=== PATIENT | male | born 1945 | race Two or more races ===

== ENCOUNTER → 2017-02-09 | Outpatient (CLI) | payer OTHER, MEDICAID ==
[2016-07-24 15:09] VITALS: BP 136/73
[~2017-02-09] MED LIST: ASPI-482 PO; CONTRAST GIVEN MC PRN; DIGO125T PO; DILT240C2 PO; DILT240C32 PO; DILT240C66 PO; ESCI10TA10 PO; GABA-586 PO; GLIM2TAB2 PO; HYDR-2678 PO; INSU100I13 SQ; INSU100V10 IJ; INSU100V8 SQ; IOHEXOL 300 MG/ML 75 ML VIAL IV ONE; LATA2.5D3 OP; LEVO500T8 PO; LOSA1TAB12 PO; LOSA1TAB17 PO; MECL12.52 PO; METF-620 PO; METF500T4 PO; MONT10TA9 PO; OMEG300C PO; OMEP40CA5 PO; SOTA80TA48 PO; WARF-78 PO; WARF2.5T71 PO; WARF2.5T83 PO; cholestero
[2017-02-09 12:27] LABS: CREATININE 0.9 mg/dL (0.7-1.3); GFR 83.4
--- NOTE | 2017-02-09 13:04 | RAD ---
Indication cough for 6 months. Contrast imaging through the chest was performed. Approximately 75 cc of Omnipaque 300 was administered intravenously. Comparison is made to a study one year ago. Imaging through the upper abdomen shows no acute finding. Known cholelithiasis is reproduced. The thoracic aorta appears unremarkable. There is no significant hilar or mediastinal adenopathy. An acute parenchymal infiltrate in either lung is not seen. A dominant soft tissue mass is not apparent. IMPRESSION: No acute finding in the chest. No significant change compared to the study one year ago PQRS Compliance Statement: One or more of the following individualized dose reduction techniques were utilized for this examination: 1. Automated exposure control 2. Adjustment of the mA and/or kV according to patient size 3. Use of iterative reconstruction technique
== END | disposition home or self-care (01) ==
LOC: CT 11:31
PROVIDERS: ATTEND Family Medicine
DX: R91.1 Solitary pulmonary nodule (principal); Z87.09 Personal history of other diseases of the respiratory system; R05 Cough
CPT/HCPCS: 36415; 71260; 82565; 84520

== ENCOUNTER 2019-02-27 14:08 | Emergency (ER) | payer MEDICAID, OTHER ==
[~2019-02-27] VITALS: Ht 170.2 cm; Wt 86.2 kg
[~2019-02-27 14:08] MED LIST changes: -CONTRAST GIVEN MC PRN; -ESCI10TA10 PO; -GABA-586 PO; +GABA300C18 PO; -INSU100V10 IJ; +INSU100V11 IJ; -IOHEXOL 300 MG/ML 75 ML VIAL IV ONE; +LEXAPRO10 MG PO; -LOSA1TAB17 PO; +LOSA1TAB22 PO; -METF-620 PO; +METF10007 PO; +METF500T16 PO; -METF500T4 PO; +MONT10TA49 PO; -MONT10TA9 PO
[2019-02-27 15:27] VITALS: BP 182/84
[2019-02-27] MEDS ORDERED: CEPH500C PO (15:30)
--- NOTE | 2019-02-27 15:31 | PHYS DOC ---
Past Medical History Past Medical History: Cancer, Diabetes-Type II, High Cholesterol, Hypertension, Other Additional Past Medical Histor: HX COLON CA-CHEMO AND RESECTION- IN REMISSION Past Surgical History: Cancer Surgery, Pacemaker, Other Additional Past Surgical Histo: BACK, COLON RESECTION Alcohol Use: None Drug Use: None Adult General Chief Complaint Chief Complaint: TOE PROBLEM HPI HPI 73-year-old female presents from his primary care provider's office with a lesion to his right second toe. Patient has diabetes and has had foot ulcers in the past. He has not had any fever. He doesn't have any serious pain in the area. He has not seen a repair specialist.[] Review of Systems Review of Systems Constitutional: Denies fever or chills [] Eyes: Denies change in visual acuity, redness, or eye pain [] HENT: Denies nasal congestion or sore throat [] Respiratory: Denies cough or shortness of breath [] Cardiovascular: No additional information not addressed in HPI [] GI: Denies abdominal pain, nausea, vomiting, bloody stools or diarrhea [] : Denies dysuria or hematuria [] Musculoskeletal: Denies back pain or joint pain [] Integument: Lesion to the tip of the right second toe[] Neurologic: Denies headache, focal weakness or sensory changes [] Endocrine: Diabetes that is well controlled[] All other systems were reviewed and found to be within normal limits, except as documented in this note. Allergies Allergies Allergies Coded Allergies Type Severity Reaction Last Updated Verified No Known Drug Allergies 02/27/19 No Physical Exam Physical Exam Constitutional: Well developed, well nourished, no acute distress, non-toxic appearance. [] HENT: Normocephalic, atraumatic, bilateral external ears normal, oropharynx moist, no oral exudates, nose normal. [] Eyes: PERRLA, EOMI, conjunctiva normal, no discharge. [] Neck: Normal range of motion, no tenderness, supple, no stridor. [] Cardiovascular:Heart rate regular rhythm, no murmur [] Lungs & Thorax: Bilateral breath sounds clear to auscultation [] Abdomen: Bowel sounds normal, soft, no tenderness, no masses, no pulsatile masses. [] Skin: Warm, dry, no erythema, no rash. [] Back: No tenderness, no CVA tenderness. [] Extremities: Patient has decreased sensation in both lower extremities he has a 0.5 cm circular lesion to the distal tip of the right second toe with no significant surrounding erythema does not appear to be gangrenous[] Neurologic: Alert and oriented X 3, normal motor function, normal sensory function, no focal deficits noted. [] Psychologic: Affect normal, judgement normal, mood normal. [] Current Patient Data Vital Signs Vital Signs Date Time Temp Pulse Resp B/P (MAP) Pulse Ox O2 Delivery O2 Flow Rate FiO2 02/27/19 14:15 97.9 72 20 194/88 (123) 99 Room Air 97.9 EKG EKG [] Radiology/Procedures Radiology/Procedures [] Course & Med Decision Making Course & Med Decision Making Pertinent Labs and Imaging studies reviewed. (See chart for details) [ED course: Right which reveals a 73-year-old male with a diabetic foot wound. It does not look to be infected. I will go ahead and start him on outpatient antibiotics. I will give him a referral to our wound clinic. I do not think this is anything emergent or urgent. I discussed all of this with the daughter who clearly understands. She also asked if we could refer him to a knitter machine. Since Dr. Chavarria his left.] Dragon Disclaimer Dragon Disclaimer This electronic medical record was generated, in whole or in part, using a voice recognition dictation system. Departure Departure Impression: Primary Impression: Diabetic foot ulcer associated with secondary diabetes mellitus Disposition: 01 HOME, SELF-CARE Condition: STABLE Referrals: TARSHA MENDOZA MD, Dr. is a knitter machine so please call his office to schedule follow-up on his pacemaker Patient Instructions: Wound Care, [id number] Additional Instructions: Follow with wound care clinic as directed. Take your antibiotics as directed. Return to the emergency department with any new or concerning symptoms Scripts Cephalexin (CEPHALEXIN) 500 Mg Capsule 1 CAP PO TID for foot wound, #30 CAP Prov: MELLY MORTON DO 02/27/19 Problem Qualifiers Primary Impression: Diabetic foot ulcer associated with secondary diabetes mellitus Diabetic foot ulcer location: toe Laterality: right Non-pressure ulcer stage: with fat layer exposed Qualified Codes: E08.621 - Diabetes mellitus due to underlying condition with foot ulcer; L97.512 - Non-pressure chronic ulcer of other part of right foot with fat layer exposed MELLY MORTON DO Feb 27, 2019 15:31
== END 2019-02-27 15:45 | disposition home or self-care (01) ==
LOC: ER 14:08
DX: E08.621 Diabetes mellitus due to underlying condition with foot ulcer (principal); L97.512 Non-pressure chronic ulcer of other part of right foot with fat layer exposed; E78.00 Pure hypercholesterolemia, unspecified; I10 Essential (primary) hypertension; Z95.0 Presence of cardiac pacemaker
CPT/HCPCS: 99283

== ENCOUNTER 2019-03-17 20:09 | Inpatient (IN) | payer OTHER ==
[~2019-03-17] VITALS: Ht 170.2 cm; Wt 81.6 kg
[~2019-03-17 20:09] MED LIST changes: +CEPH500C PO
--- NOTE | 2019-03-17 20:53 | PHYS DOC ---
Past Medical History Past Medical History: Cancer, Diabetes-Type II, Glaucoma, High Cholesterol, Hypertension, Other Additional Past Medical Histor: HX COLON CA-CHEMO AND RESECTION- IN REMISSION (NOHEMI CONNORS APRN) Past Surgical History: Cancer Surgery, Pacemaker, Other Additional Past Surgical Histo: BACK, COLON RESECTION (NOHEMI CONNORS APRN) Alcohol Use: None Drug Use: None (NOHEMI CONNORS APRN) Adult General Chief Complaint Chief Complaint: GROIN PAIN HPI HPI Patient is a 73 year old male with history of diabetes type 2, hypertension, high cholesterol, who presents to the ED today complaining of right groin mass for 1 month. Patient denies any known injury. Denies any urgency, frequency, dysuria. Denies any abdominal pain. He states he had abdominal hernia which was fixed a couple years ago. Patient is Maori-speaking and interpretation is provided by family (NOHEMI CONNORS APRN) Review of Systems Review of Systems Constitutional: Denies fever or chills [] Eyes: Denies change in visual acuity, redness, or eye pain [] HENT: Denies nasal congestion or sore throat [] Respiratory: Denies cough or shortness of breath [] Cardiovascular: No additional information not addressed in HPI [] GI: Reports right groin mass. Denies abdominal pain, nausea, vomiting, bloody stools or diarrhea [] : Denies dysuria or hematuria [] Musculoskeletal: Denies back pain or joint pain [] Integument: Denies rash or skin lesions [] Neurologic: Denies headache, focal weakness or sensory changes [] Endocrine: Denies polyuria or polydipsia [] All other systems were reviewed and found to be within normal limits, except as documented in this note. (NOHEMI CONNORS APRN) Allergies Allergies Allergies Coded Allergies Type Severity Reaction Last Updated Verified No Known Drug Allergies 02/27/19 No (HITESH MALONE MD) Physical Exam Physical Exam Constitutional: Well developed, well nourished, no acute distress, non-toxic appearance. [] HENT: Normocephalic, atraumatic, bilateral external ears normal, oropharynx moist, no oral exudates, nose normal. [] Eyes: PERRLA, EOMI, conjunctiva normal, no discharge. [] Neck: Normal range of motion, no tenderness, supple, no stridor. [] Cardiovascular:Heart rate regular rhythm, no murmur [] Lungs & Thorax: Bilateral breath sounds clear to auscultation [] Abdomen: Old healed surgical incision noted midline lower abdomen. Bowel sounds normal, soft, no tenderness, no masses, no pulsatile masses. [] Right groin appears to have a mass suspicious of inguinal hernia. Skin: Right second toe tip with a wound that does not appear infected. The dressing on the wound was removed and redressed. Back: No tenderness, no CVA tenderness. [] Extremities: No tenderness, no cyanosis, no clubbing, ROM intact, no edema. [] Neurologic: Alert and oriented X 3, normal motor function, normal sensory function, no focal deficits noted. [] Psychologic: Affect normal, judgement normal, mood normal. [] (NOHEMI CONNORS APRN) Current Patient Data Vital Signs Vital Signs Date Time Temp Pulse Resp B/P (MAP) Pulse Ox O2 Delivery O2 Flow Rate FiO2 03/17/19 21:30 70 18 150/81 (104) 96 Room Air 03/17/19 20:19 97.9 97.9 (HITESH MALONE MD) Lab Values Laboratory Tests Test 03/17/19 20:50 White Blood Count 5.1 x10^3/uL (4.0-11.0) Red Blood Count 4.24 x10^6/uL (4.30-5.70) L Hemoglobin 12.0 g/dL (13.0-17.5) L Hematocrit 36.7 % (39.0-53.0) L Mean Corpuscular Volume 86 fL (79-100) Mean Corpuscular Hemoglobin 28 pg (25-35) Mean Corpuscular Hemoglobin Concent 33 g/dL (31-37) Red Cell Distribution Width 15.4 % (11.5-14.5) H Platelet Count 237 x10^3/uL (140-400) Neutrophils (%) (Auto) 52 % (31-73) Lymphocytes (%) (Auto) 34 % (24-48) Monocytes (%) (Auto) 11 % (0-9) H Eosinophils (%) (Auto) 3 % (0-3) Basophils (%) (Auto) 0 % (0-3) Neutrophils # (Auto) 2.6 x10^3uL (1.8-7.7) Lymphocytes # (Auto) 1.8 x10^3/uL (1.0-4.8) Monocytes # (Auto) 0.6 x10^3/uL (0.0-1.1) Eosinophils # (Auto) 0.1 x10^3/uL (0.0-0.7) Basophils # (Auto) 0.0 x10^3/uL (0.0-0.2) Prothrombin Time 19.6 SEC (11.7-14.0) H Prothrombin Time INR 1.7 (0.8-1.1) H Sodium Level 128 mmol/L (136-145) L Potassium Level 5.2 mmol/L (3.5-5.1) H Chloride Level 95 mmol/L (98-107) L Carbon Dioxide Level 25 mmol/L (21-32) Anion Gap 8 (6-14) Blood Urea Nitrogen 31 mg/dL (8-26) H Creatinine 2.2 mg/dL (0.7-1.3) H Estimated GFR (Cockcroft-Gault) 29.6 BUN/Creatinine Ratio 14 (6-20) Glucose Level 636 mg/dL (70-99) *H Calcium Level 8.3 mg/dL (8.5-10.1) L Total Bilirubin 0.4 mg/dL (0.2-1.0) Aspartate Amino Transferase (AST) 35 U/L (15-37) Alanine Aminotransferase (ALT) 59 U/L (16-63) Alkaline Phosphatase 108 U/L (46-116) Total Protein 7.5 g/dL (6.4-8.2) Albumin 3.0 g/dL (3.4-5.0) L Albumin/Globulin Ratio 0.7 (1.0-1.7) L Lipase 67 U/L (73-393) L Laboratory Tests 03/17/19 20:50 Laboratory Tests 03/17/19 20:50 (HITESH MALONE MD) Lab Values Laboratory Tests Test 03/17/19 20:50 White Blood Count 5.1 x10^3/uL (4.0-11.0) Red Blood Count 4.24 x10^6/uL (4.30-5.70) L Hemoglobin 12.0 g/dL (13.0-17.5) L Hematocrit 36.7 % (39.0-53.0) L Mean Corpuscular Volume 86 fL (79-100) Mean Corpuscular Hemoglobin 28 pg (25-35) Mean Corpuscular Hemoglobin Concent 33 g/dL (31-37) Red Cell Distribution Width 15.4 % (11.5-14.5) H Platelet Count 237 x10^3/uL (140-400) Neutrophils (%) (Auto) 52 % (31-73) Lymphocytes (%) (Auto) 34 % (24-48) Monocytes (%) (Auto) 11 % (0-9) H Eosinophils (%) (Auto) 3 % (0-3) Basophils (%) (Auto) 0 % (0-3) Neutrophils # (Auto) 2.6 x10^3uL (1.8-7.7) Lymphocytes # (Auto) 1.8 x10^3/uL (1.0-4.8) Monocytes # (Auto) 0.6 x10^3/uL (0.0-1.1) Eosinophils # (Auto) 0.1 x10^3/uL (0.0-0.7) Basophils # (Auto) 0.0 x10^3/uL (0.0-0.2) Prothrombin Time 19.6 SEC (11.7-14.0) H Prothrombin Time INR 1.7 (0.8-1.1) H Sodium Level 128 mmol/L (136-145) L Potassium Level 5.2 mmol/L (3.5-5.1) H Chloride Level 95 mmol/L (98-107) L Carbon Dioxide Level 25 mmol/L (21-32) Anion Gap 8 (6-14) Blood Urea Nitrogen 31 mg/dL (8-26) H Creatinine 2.2 mg/dL (0.7-1.3) H Estimated GFR (Cockcroft-Gault) 29.6 BUN/Creatinine Ratio 14 (6-20) Glucose Level 636 mg/dL (70-99) *H Calcium Level 8.3 mg/dL (8.5-10.1) L Total Bilirubin 0.4 mg/dL (0.2-1.0) Aspartate Amino Transferase (AST) 35 U/L (15-37) Alanine Aminotransferase (ALT) 59 U/L (16-63) Alkaline Phosphatase 108 U/L (46-116) Total Protein 7.5 g/dL (6.4-8.2) Albumin 3.0 g/dL (3.4-5.0) L Albumin/Globulin Ratio 0.7 (1.0-1.7) L Lipase 67 U/L (73-393) L Laboratory Tests 03/17/19 20:50 Laboratory Tests 03/17/19 20:50 (NOHEMI CONNORS APRN) EKG EKG [] (NOHEMI CONNORS APRN) Radiology/Procedures Radiology/Procedures [] (NOHEMI CONNORS APRN) Course & Med Decision Making Course & Med Decision Making Pertinent Labs and Imaging studies reviewed. (See chart for details) This is a 73-year-old male patient presenting to the ED today with a right groin mass suspicious of inguinal hernia. Symptoms for 1 month. CBC with normal WBC, hemoglobin 12.0, hematocrit 36.7, CMP with sodium of 128, potassium 5.2, BUN 31, creatinine 2.2, patient's creatinine appears to be around his baseline. Glucose 636 with normal anion gap. Patient was given IV fluids. I ordered insulin. Spoke with -who accepted patient for admission Off note patient has right and twice to leave AMA. Reason for living he wants to go home and sleep in his bed. We've encouraged patient to stay so we can get his blood glucose under control. Patient also has a wound on the right second toe, this wound is chronic. The wound care clinic at [facility] is taking care of the wound. The wound does not appear infected. (NOHEMI CONNORS APRN) Course & Med Decision Making Staff Physician Addendum: I was working in the ER during the course of this patient's visit. I was available for consultation as needed, but I was not directly involved in the care of this patient. (HITESH MALONE MD) Dragon Disclaimer Dragon Disclaimer This electronic medical record was generated, in whole or in part, using a voice recognition dictation system. (NOHEMI CONNORS APRN) Departure Departure Impression: Primary Impression: Hyperglycemia Additional Impressions: Hyponatremia Right groin mass Disposition: ADMITTED INPATIENT Condition: STABLE Referrals: CLEMENT FELIPE MD (PCP) Problem Qualifiers NOHEMI CONNORS APRN Mar 17, 2019 20:53 HITESH MALONE MD Mar 18, 2019 18:07
[2019-03-17 20:59] LABS: BASO % 0 % (0-3); EOS # 0.1 x10^3/uL (0.0-0.7); EOS % 3 % (0-3); HEMATOCRIT 36.7 % (39.0-53.0); LYMPH # 1.8 x10^3/uL (1.0-4.8); LYMPH % 34 % (24-48); MEAN CORPUSCULAR HEMOGLOBIN 28 pg (25-35); MEAN CORPUSCULAR HGB CONC 33 g/dL (31-37); MEAN CORPUSCULAR VOLUME 86 fL (79-100); MONO # 0.6 x10^3/uL (0.0-1.1); MONO % 11 % (0-9); NEUT # 2.6 x10^3uL (1.8-7.7); NEUT % 52 % (31-73); PLATELET COUNT 237 x10^3/uL (140-400); RED BLOOD COUNT 4.24 x10^6/uL (4.30-5.70); RED CELL DISTRIBUTION WIDTH 15.4 % (11.5-14.5); WHITE BLOOD COUNT 5.1 x10^3/uL (4.0-11.0)
[2019-03-17 21:14] LABS: ALBUMIN/GLOBULIN RATIO 0.7 (1.0-1.7); CALCIUM 8.3 mg/dL (8.5-10.1); CREATININE 2.2 mg/dL (0.7-1.3); GFR 29.6; POTASSIUM 5.2 mmol/L (3.5-5.1); TOTAL BILIRUBIN 0.4 mg/dL (0.2-1.0); TOTAL PROTEIN 7.5 g/dL (6.4-8.2)
[2019-03-17] MEDS ORDERED: BISACODYL 10 MG SUPP.RECT. PR PRN (21:45)
[2019-03-17] MEDS ORDERED: ACETAMINOPHEN 325 MG TABLET. PO PRN (21:45)
[2019-03-17] MEDS ORDERED: DEXTROSE 50% 25 GM / 50ML DISP.SYRIN. IV PRN ×2 (21:45)
[2019-03-17] MEDS ORDERED: guaiFENesin DM 200MG/20MG 10 ML SYRUP PO PRN (21:45)
[2019-03-17] MEDS ORDERED: ONDANSETRON PF 4 MG/2 ML VIAL. IV PRN ×2 (21:45)
[2019-03-17] MEDS ORDERED: MORPHINE SULFATE 2 MG/ML VIAL. IV PRN (21:45)
[2019-03-17] MEDS ORDERED: oxyCODONE IR 5 MG TABLET PO PRN (21:45)
[2019-03-17] MEDS ORDERED: ALBUTEROL SULFATE 2.5 MG/3 ML NEBU. NEB PRN (21:45)
[2019-03-17] MEDS ORDERED: MAG HYDROX/ALUMINUM HYD/SIMETH 30 ML ORAL.SUSP PO PRN (21:45)
[2019-03-17] MEDS ORDERED: INSULIN REGULAR VIAL 150 UNIT in 0.9 % SODIUM CHLORIDE 150ML 150 ML IV PRN (21:45)
[2019-03-17] MEDS ORDERED: PROCHLORPERAZINE 10 MG/2 ML VIAL. IV PRN (21:45)
[2019-03-17] MEDS ORDERED: HYDROcodone/APAP 5/325MG 1 TAB TABLET PO PRN (21:45)
[2019-03-17] MEDS ORDERED: MAGNESIUM HYDROXIDE 2,400 MG/30 ML ORAL.SUSP. PO PRN (21:45)
[2019-03-17 21:53] LABS: PROTHROMBIN TIME PATIENT 19.6 SEC (11.7-14.0)
[2019-03-17] MEDS ORDERED: MONTELUKAST SODIUM 10 MG TABLET. PO SCH (22:00)
[2019-03-17] MEDS ORDERED: LATANOPROST 0.005% OPHTH SOLUTION 2.5ML BOTTLE. OU SCH (22:00)
[2019-03-17] MEDS ORDERED: IV NORMAL SALINE 1000ML BAG 1,000 ML IV ONE ×3 (22:00)
[2019-03-17] MEDS ORDERED: IV NORMAL SALINE 1000ML BAG 1,000 ML IV SCH (22:00)
[2019-03-17] MEDS ORDERED: INSULIN REGULAR 100 UNIT/ML 3ML VIAL. IV ONE (22:00)
[2019-03-17] MEDS ORDERED: INSULIN GLARGINE 300 UNITS/3 ML INSULN.PEN. SQ SCH (22:00)
--- NOTE | 2019-03-17 22:07 | RAD ---
PQRS Compliance Statement: One or more of the following individualized dose reduction techniques were utilized for this examination: 1. Automated exposure control 2. Adjustment of the mA and/or kV according to patient size 3. Use of iterative reconstruction technique CT abdomen/pelvis without contrast 03/17/2019 9:28 PM INDICATION: Right groin mass. Painful for one month. COMPARISON: CT abdomen/pelvis July 22, 2016 TECHNIQUE: Multiple axial CT images of the abdomen and pelvis were obtained without intravenous contrast. Coronal and sagittal reformats are provided. FINDINGS: Chronic interstitial changes are identified at the lung bases. There is subsegmental atelectasis or scarring in the inferior lingula. Heart size is enlarged. Cardiac pacer wires are partially profiled. Evaluation of solid abdominal viscera is limited by lack of intravenous contrast. Liver, spleen, bilateral adrenal glands and pancreas are normal in appearance. Gallstone is identified within gallbladder. No adjacent inflammatory changes are identified. Abdominal aorta is normal in course and caliber. No pathologically enlarged lymph nodes are identified in abdomen and pelvis. There is a moderate right facet containing inguinal hernia. No free fluid or free intraperitoneal air. Small large bowel are normal in caliber. No evidence for bowel obstruction or inflammation. Appendix is not definitively visualized. No pericecal inflammatory changes are identified. Nonenlarged right lower quadrant lymph nodes are identified measuring up to 8 mm by short axis (series 2, image 63). The kidneys are relatively symmetric in appearance. There is no suspicious renal mass within the limitations of a noncontrast examination. There is no hydronephrosis. There are no calculi within the kidneys, ureters or urinary bladder. Urinary bladder is within normal limits given degree of distention. Urinary bladder extends into the right inguinal hernia. Prostate and seminal vesicles are normal. No suspicious osseous abnormality is identified. IMPRESSION: 1. Testicles are poorly evaluated by CT. 2. No pathologically enlarged lymph nodes are identified in abdomen and pelvis. 3. Cholelithiasis. 4. Cardiomegaly. Electronically signed by: Patria Sauceda MD (03/17/2019 10:04 PM) [id number]
[2019-03-17 23:58] VITALS: BP 175/78
[2019-03-18] MEDS ORDERED: C.DIFF MED SCREEN BY RX. MC ONE
--- NOTE | 2019-03-18 01:48 | NUR ---
Pharmacy Warfarin Dosing Note S:Pharmacy consulted to assist with anticoagulation therapy started with target INR: 2 -3 O:OSIEL AVILES is a 73 year old M with Atrial Fibrillation LABS: Last INR: 1.7 Last HGB: 12 Last HCT: 36.7 Last PLT: 237 Last dose of 2.5 mg given on at Previous Regimen: 2.5 MG DAILY Vitamin K given: Drug Interaction Changes: Ongoing Drug Interactions: A:INR of 1.7 is below desired range. Target range for this patient is: 2 -3 P: Warfarin dose: 2.5 mg TAKEN AT HOME 03/17/19 Bridge Therapy: Heparin 5000 units q12h Next INR due DAILY Pharmacy anticoagulation service will continue to follow. CHYNA WATT RPH, 03/18/19 0149 Signed: 03/18/19 at 0150 by CHYNA WATT RPH PHA
[2019-03-18 03:04] VITALS: BP 164/76
[2019-03-18 03:58] LABS: BASO % 1 % (0-3); EOS # 0.2 x10^3/uL (0.0-0.7); EOS % 4 % (0-3); HEMATOCRIT 36.3 % (39.0-53.0); HEMOGLOBIN 11.8 g/dL (13.0-17.5); LYMPH # 2.2 x10^3/uL (1.0-4.8); LYMPH % 40 % (24-48); MEAN CORPUSCULAR HEMOGLOBIN 27 pg (25-35); MEAN CORPUSCULAR HGB CONC 32 g/dL (31-37); MEAN CORPUSCULAR VOLUME 84 fL (79-100); MONO # 0.8 x10^3/uL (0.0-1.1); MONO % 14 % (0-9); NEUT # 2.4 x10^3uL (1.8-7.7); NEUT % 43 % (31-73); PLATELET COUNT 245 x10^3/uL (140-400); RED CELL DISTRIBUTION WIDTH 15.2 % (11.5-14.5); WHITE BLOOD COUNT 5.7 x10^3/uL (4.0-11.0)
[2019-03-18 04:32] LABS: CALCIUM 8.2 mg/dL (8.5-10.1); CREATININE 1.4 mg/dL (0.7-1.3); GFR 49.8; MAGNESIUM 2.1 mg/dL (1.8-2.4); PHOSPHORUS 3.7 mg/dL (2.6-4.7); POTASSIUM 3.7 mmol/L (3.5-5.1)
[2019-03-18 07:00] VITALS: BP 174/78
[2019-03-18] MEDS ORDERED: PANTOPRAZOLE 40 MG TABLET.DR. PO SCH (07:30)
[2019-03-18] MEDS ORDERED: GLIMEPIRIDE 2 MG TABLET. PO SCH (08:00)
[2019-03-18] MEDS ORDERED: INSULIN LISPRO 300 UNITS/3 ML INSULN.PEN. SQ SCH ×3 (08:00→12:00)
--- NOTE | 2019-03-18 08:54 | PDOC2 ---
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 1 month hx of groin pain and swelling. Pain is intermittent and stabbing. Hurts worse with ambulating. No nausea or emesis. Mild diarrhea. Hx of colon resection with Dr Bright Past Medical History Cardiovascular: AFIB, HTN, Hyperlipidemia Heme/Onc: Cancer Musculoskeletal: low back pain Endocrine: Diabetes Past Surgical History Past Surgical History: Colon Resection, Other Family History Family History: No Significant Social History ALCOHOL: rare Drugs: None Lives: with Family Current Problem List Problem List Problems Medical Problems: (1) Right groin mass Status: Acute Current Medications Current Medications Current Medications Sodium Chloride 1,000 ml @ 1,000 mls/hr 1X ONCE IV Last administered on 03/17/19at 22:00; Start 03/17/19 at 22:00; Stop 03/17/19 at 22:59; Status DC Sodium Chloride 1,000 ml @ 1,000 mls/hr 1X ONCE IV Last administered on 03/17/19at 22:01; Start 03/17/19 at 22:00; Stop 03/17/19 at 22:59; Status DC Insulin Human Regular (HumuLIN R VIAL) 10 unit 1X ONCE IV ; Start 03/17/19 at 22:00; Stop 03/17/19 at 22:01; Status DC Sodium Chloride 1,000 ml @ 100 mls/hr Q10H IV ; Start 03/17/19 at 22:00; Stop 03/18/19 at 07:59; Status DC Ondansetron HCl (Zofran) 4 mg PRN Q6HRS PRN IV NAUSEA/VOMITING 1ST CHOICE; Start 03/17/19 at 21:45 Prochlorperazine Edisylate (Compazine) 10 mg PRN Q6HRS PRN IV NAUSEA/VOMITING 2ND CHOICE; Start 03/17/19 at 21:45 Al Hydroxide/Mg Hydroxide (Mylanta Plus Xs) 30 ml PRN Q3HRS PRN PO HEARTBURN / GAS; Start 03/17/19 at 21:45; Status Cancel Oxycodone HCl (Roxicodone) 5 mg PRN Q3HRS PRN PO BREAKTHROUGH PAIN; Start 03/17/19 at 21:45 Morphine Sulfate (Morphine Sulfate) 1 mg PRN Q2HR PRN IV SEVERE PAIN 7-10; Start 03/17/19 at 21:45 Acetaminophen (Tylenol) 650 mg PRN Q6HRS PRN PO Headaches, Temp > 101.5F; Start 03/17/19 at 21:45 Magnesium Hydroxide (Milk Of Magnesia) 2,400 mg PRN Q12HR PRN PO CONSTIPATION; Start 03/17/19 at 21:45; Status UNV Bisacodyl (Dulcolax Supp) 10 mg PRN DAILY PRN [place] CONSTIPATION 1ST CHOICE; Start 03/17/19 at 21:45 Heparin Sodium (Porcine) (Heparin Sodium) 5,000 unit Q12HR SQ ; Start 03/18/19 at 09:00 Insulin Human Regular 150 unit/ Sodium Chloride 151.5 ml @ 0 mls/hr CONT PRN IV SEE I/O RECORD Last administered on 03/17/19at 22:26; Start 03/17/19 at 21:45 Dextrose (Dextrose 50%-Water Syringe) 12.5 gm PRN Q15MIN PRN IV LOW BLOOD SUGAR; Start 03/17/19 at 21:45 Pantoprazole Sodium (Protonix) 40 mg DAILYAC PO ; Start 03/18/19 at 07:30 Digoxin (Lanoxin) 125 mcg DAILY PO ; Start 03/18/19 at 09:00 Gabapentin (Neurontin) 300 mg BID PO ; Start 03/18/19 at 09:00 Glimepiride (Amaryl) 2 mg BIDWMEALS PO ; Start 03/18/19 at 08:00 Acetaminophen/ Hydrocodone Bitart (Lortab 5/325) 1 tab PRN Q6HRS PRN PO MODERATE PAIN 4-6; Start 03/17/19 at 21:45 Insulin Glargine (Lantus) 45 units QHS SQ ; Start 03/17/19 at 22:00 Montelukast Sodium (Singulair) 10 mg QHS PO ; Start 03/17/19 at 22:00 Diltiazem HCl (Cardizem 24hr Cd) 240 mg DAILY PO ; Start 03/18/19 at 09:00 Citalopram Hydrobromide (CeleXA) 20 mg DAILY PO ; Start 03/18/19 at 09:00 Latanoprost (Xalatan) 1 drop QHS OU ; Start 03/17/19 at 22:00 Losartan Potassium (Cozaar) 100 mg DAILY PO ; Start 03/18/19 at 09:00 Fish Oil (Fish Oil) 1,000 mg BID PO ; Start 03/18/19 at 09:00 Non-Formulary Medication (Omeprazole ) 1 cap DAILY PO ; Start 03/18/19 at 09:00; Status UNV Sotalol HCl (Betapace) 120 mg DAILY PO ; Start 03/18/19 at 09:00 Warfarin Sodium (Coumadin Per Pharmacy) 1 each PRN DAILY PRN MC SEE COMMENTS Last administered on 03/18/19at 01:48; Start 03/17/19 at 21:45 Albuterol Sulfate (Ventolin Neb Soln) 2.5 mg PRN Q4HRS PRN NEB SHORTNESS OF BREATH; Start 03/17/19 at 21:45 Guaifenesin (Robitussin Dm) 10 ml PRN Q6HRS PRN PO COUGHN 1ST CHOICE; Start 03/17/19 at 21:45 Ondansetron HCl (Zofran) 4 mg PRN Q8HRS PRN IV NAUSEA/VOMITING; Start 03/17/19 at 21:45; Stop 03/18/19 at 21:44; Status UNV Insulin Human Lispro (HumaLOG) 0-7 UNITS TIDWMEALS SQ ; Start 03/18/19 at 08:00; Status UNV Dextrose (Dextrose 50%-Water Syringe) 12.5 gm PRN Q15MIN PRN IV SEE COMMENTS; Start 03/17/19 at 21:45; Status UNV Sodium Chloride 1,000 ml @ 125 mls/hr 1X ONCE IV Last administered on 03/18/19at 00:21; Start 03/17/19 at 22:00; Stop 03/18/19 at 05:59; Status DC Hydrochlorothiazide (Hydrodiuril) 25 mg DAILY PO ; Start 03/18/19 at 09:00 Pharmacy Consult (C.diff Med Screen By Rx) 1 each 1X ONCE MC ; Start 03/18/19 at 00:00; Stop 03/18/19 at 00:01; Status DC Active Scripts Active Cephalexin 500 Mg Capsule 1 Cap PO TID Cardizem Cd (Diltiazem Hcl) 240 Mg Cap.er.24h 1 Cap PO DAILY Reported Hyzaar 100-25 Tablet (Losartan/Hydrochlorothiazide) 1 Each Tablet 1 Tab PO DAILY Latanoprost 2.5 Ml Drops 1 Drop OP HS Digoxin 125 Mcg Tablet 125 Mcg PO DAILY Lexapro (Escitalopram Oxalate) 10 Mg Tablet 10 Mg PO DAILY Fish Oil ([place]-3 Fatty Acids) 300 Mg Capsule 300 Mg PO BID Lortab 5-325 mg Tablet (Hydrocodone/Acetaminophen) 1 Each Tablet 1 Tab PO PRN Q6HRS PRN Sotalol (Sotalol Hcl) 80 Mg Tablet 1.5 Tab PO BID Coumadin (Warfarin Sodium) 2.5 Mg Tablet 1 Tab PO DAILY Glimepiride 2 Mg Tablet 1 Tab PO BID Gabapentin (Gabapentin) 300 Mg Capsule 300 Mg PO BID Omeprazole 40 Mg Capsule.dr 1 Cap PO DAILY Montelukast Sodium Tablet (Montelukast Sodium) 10 Mg Tablet 1 Tab PO DAILY Lantus Solostar (Insulin Glargine,Hum.rec.anlog) 100 Unit/1 Ml Insuln.pen 45 Unit SQ QHS Novolin R (Insulin Regular, Human) 100 Unit/1 Ml Vial 100 Unit IJ Allergies Allergies: Coded Allergies: No Known Drug Allergies (Unverified , 02/27/19) ROS General: No: Chills, Other (fevers ) PSYCHOLOGICAL ROS: No: Anxiety, Depression Eyes: No Blurry vision, No Double vision HEENT: No: Heacaches, Sore Throat ENDOCRINE: No: Breast Changes, Galactorrhea Respiratory: No: Cough, SOB with excertion Cardiovascular: No Chest Pain, No Palpitations Gastrointestinal: Yes Other (see hpi) Musculoskeletal: No Joint Pain, No Muscle Pain Neurological: No Confusion, No Impaired Coord/balance Skin: No Pruritus, No Rash Physical Exam Physical Exam Right groin --soft, hernia defect General: Alert, Oriented X3, Cooperative, No acute distress HEENT: PERRLA, Mucous membr. moist/pink Lungs: Clear to auscultation, Normal air movement Heart: Regular rate, Normal S1, Normal S2, No murmurs Abdomen: Soft, Other (ND, NTTP) Extremities: No clubbing, No cyanosis Skin: No rashes, No breakdown Neuro: Normal gait, Normal speech Psych/Mental Status: Mental status NL, Mood NL MUSCULOSKELETAL: No deformity, No swelling Vitals VITALS Vital Signs Date Time Temp Pulse Resp B/P (MAP) Pulse Ox O2 Delivery O2 Flow Rate FiO2 03/18/19 07:00 98.0 79 18 174/78 (110) 98 Room Air 98.0 Labs Labs Laboratory Tests Test 03/17/19 20:50 03/17/19 22:15 03/17/19 23:28 03/18/19 00:32 White Blood Count 5.1 x10^3/uL (4.0-11.0) Red Blood Count 4.24 x10^6/uL (4.30-5.70) Hemoglobin 12.0 g/dL (13.0-17.5) Hematocrit 36.7 % (39.0-53.0) Mean Corpuscular Volume 86 fL (79-100) Mean Corpuscular Hemoglobin 28 pg (25-35) Mean Corpuscular Hemoglobin Concent 33 g/dL (31-37) Red Cell Distribution Width 15.4 % (11.5-14.5) Platelet Count 237 x10^3/uL (140-400) Neutrophils (%) (Auto) 52 % (31-73) Lymphocytes (%) (Auto) 34 % (24-48) Monocytes (%) (Auto) 11 % (0-9) Eosinophils (%) (Auto) 3 % (0-3) Basophils (%) (Auto) 0 % (0-3) Neutrophils # (Auto) 2.6 x10^3uL (1.8-7.7) Lymphocytes # (Auto) 1.8 x10^3/uL (1.0-4.8) Monocytes # (Auto) 0.6 x10^3/uL (0.0-1.1) Eosinophils # (Auto) 0.1 x10^3/uL (0.0-0.7) Basophils # (Auto) 0.0 x10^3/uL (0.0-0.2) Prothrombin Time 19.6 SEC (11.7-14.0) Prothromb Time International Ratio 1.7 (0.8-1.1) Sodium Level 128 mmol/L (136-145) Potassium Level 5.2 mmol/L (3.5-5.1) Chloride Level 95 mmol/L (98-107) Carbon Dioxide Level 25 mmol/L (21-32) Anion Gap 8 (6-14) Blood Urea Nitrogen 31 mg/dL (8-26) Creatinine 2.2 mg/dL (0.7-1.3) Estimated GFR (Cockcroft-Gault) 29.6 BUN/Creatinine Ratio 14 (6-20) Glucose Level 636 mg/dL (70-99) Calcium Level 8.3 mg/dL (8.5-10.1) Total Bilirubin 0.4 mg/dL (0.2-1.0) Aspartate Amino Transf (AST/SGOT) 35 U/L (15-37) Alanine Aminotransferase (ALT/SGPT) 59 U/L (16-63) Alkaline Phosphatase 108 U/L (46-116) Total Protein 7.5 g/dL (6.4-8.2) Albumin 3.0 g/dL (3.4-5.0) Albumin/Globulin Ratio 0.7 (1.0-1.7) Lipase 67 U/L (73-393) Glucose (Fingerstick) 564 mg/dL (70-99) 378 mg/dL (70-99) 280 mg/dL (70-99) Test 03/18/19 01:54 03/18/19 02:58 03/18/19 03:25 03/18/19 04:23 Glucose (Fingerstick) 144 mg/dL (70-99) 100 mg/dL (70-99) 117 mg/dL (70-99) White Blood Count 5.7 x10^3/uL (4.0-11.0) Red Blood Count 4.30 x10^6/uL (4.30-5.70) Hemoglobin 11.8 g/dL (13.0-17.5) Hematocrit 36.3 % (39.0-53.0) Mean Corpuscular Volume 84 fL (79-100) Mean Corpuscular Hemoglobin 27 pg (25-35) Mean Corpuscular Hemoglobin Concent 32 g/dL (31-37) Red Cell Distribution Width 15.2 % (11.5-14.5) Platelet Count 245 x10^3/uL (140-400) Neutrophils (%) (Auto) 43 % (31-73) Lymphocytes (%) (Auto) 40 % (24-48) Monocytes (%) (Auto) 14 % (0-9) Eosinophils (%) (Auto) 4 % (0-3) Basophils (%) (Auto) 1 % (0-3) Neutrophils # (Auto) 2.4 x10^3uL (1.8-7.7) Lymphocytes # (Auto) 2.2 x10^3/uL (1.0-4.8) Monocytes # (Auto) 0.8 x10^3/uL (0.0-1.1) Eosinophils # (Auto) 0.2 x10^3/uL (0.0-0.7) Basophils # (Auto) 0.0 x10^3/uL (0.0-0.2) Sodium Level 142 mmol/L (136-145) Potassium Level 3.7 mmol/L (3.5-5.1) Chloride Level 106 mmol/L (98-107) Carbon Dioxide Level 26 mmol/L (21-32) Anion Gap 10 (6-14) Blood Urea Nitrogen 26 mg/dL (8-26) Creatinine 1.4 mg/dL (0.7-1.3) Estimated GFR (Cockcroft-Gault) 49.8 Glucose Level 94 mg/dL (70-99) Calcium Level 8.2 mg/dL (8.5-10.1) Phosphorus Level 3.7 mg/dL (2.6-4.7) Magnesium Level 2.1 mg/dL (1.8-2.4) Test 03/18/19 05:35 03/18/19 06:40 03/18/19 07:43 Glucose (Fingerstick) 137 mg/dL (70-99) 156 mg/dL (70-99) 152 mg/dL (70-99) Laboratory Tests Test 03/17/19 20:50 03/17/19 22:15 03/17/19 23:28 03/18/19 00:32 White Blood Count 5.1 x10^3/uL (4.0-11.0) Red Blood Count 4.24 x10^6/uL (4.30-5.70) Hemoglobin 12.0 g/dL (13.0-17.5) Hematocrit 36.7 % (39.0-53.0) Mean Corpuscular Volume 86 fL (79-100) Mean Corpuscular Hemoglobin 28 pg (25-35) Mean Corpuscular Hemoglobin Concent 33 g/dL (31-37) Red Cell Distribution Width 15.4 % (11.5-14.5) Platelet Count 237 x10^3/uL (140-400) Neutrophils (%) (Auto) 52 % (31-73) Lymphocytes (%) (Auto) 34 % (24-48) Monocytes (%) (Auto) 11 % (0-9) Eosinophils (%) (Auto) 3 % (0-3) Basophils (%) (Auto) 0 % (0-3) Neutrophils # (Auto) 2.6 x10^3uL (1.8-7.7) Lymphocytes # (Auto) 1.8 x10^3/uL (1.0-4.8) Monocytes # (Auto) 0.6 x10^3/uL (0.0-1.1) Eosinophils # (Auto) 0.1 x10^3/uL (0.0-0.7) Basophils # (Auto) 0.0 x10^3/uL (0.0-0.2) Prothrombin Time 19.6 SEC (11.7-14.0) Prothromb Time International Ratio 1.7 (0.8-1.1) Sodium Level 128 mmol/L (136-145) Potassium Level 5.2 mmol/L (3.5-5.1) Chloride Level 95 mmol/L (98-107) Carbon Dioxide Level 25 mmol/L (21-32) Anion Gap 8 (6-14) Blood Urea Nitrogen 31 mg/dL (8-26) Creatinine 2.2 mg/dL (0.7-1.3) Estimated GFR (Cockcroft-Gault) 29.6 BUN/Creatinine Ratio 14 (6-20) Glucose Level 636 mg/dL (70-99) Calcium Level 8.3 mg/dL (8.5-10.1) Total Bilirubin 0.4 mg/dL (0.2-1.0) Aspartate Amino Transf (AST/SGOT) 35 U/L (15-37) Alanine Aminotransferase (ALT/SGPT) 59 U/L (16-63) Alkaline Phosphatase 108 U/L (46-116) Total Protein 7.5 g/dL (6.4-8.2) Albumin 3.0 g/dL (3.4-5.0) Albumin/Globulin Ratio 0.7 (1.0-1.7) Lipase 67 U/L (73-393) Glucose (Fingerstick) 564 mg/dL (70-99) 378 mg/dL (70-99) 280 mg/dL (70-99) Test 03/18/19 01:54 03/18/19 02:58 03/18/19 03:25 03/18/19 04:23 Glucose (Fingerstick) 144 mg/dL (70-99) 100 mg/dL (70-99) 117 mg/dL (70-99) White Blood Count 5.7 x10^3/uL (4.0-11.0) Red Blood Count 4.30 x10^6/uL (4.30-5.70) Hemoglobin 11.8 g/dL (13.0-17.5) Hematocrit 36.3 % (39.0-53.0) Mean Corpuscular Volume 84 fL (79-100) Mean Corpuscular Hemoglobin 27 pg (25-35) Mean Corpuscular Hemoglobin Concent 32 g/dL (31-37) Red Cell Distribution Width 15.2 % (11.5-14.5) Platelet Count 245 x10^3/uL (140-400) Neutrophils (%) (Auto) 43 % (31-73) Lymphocytes (%) (Auto) 40 % (24-48) Monocytes (%) (Auto) 14 % (0-9) Eosinophils (%) (Auto) 4 % (0-3) Basophils (%) (Auto) 1 % (0-3) Neutrophils # (Auto) 2.4 x10^3uL (1.8-7.7) Lymphocytes # (Auto) 2.2 x10^3/uL (1.0-4.8) Monocytes # (Auto) 0.8 x10^3/uL (0.0-1.1) Eosinophils # (Auto) 0.2 x10^3/uL (0.0-0.7) Basophils # (Auto) 0.0 x10^3/uL (0.0-0.2) Sodium Level 142 mmol/L (136-145) Potassium Level 3.7 mmol/L (3.5-5.1) Chloride Level 106 mmol/L (98-107) Carbon Dioxide Level 26 mmol/L (21-32) Anion Gap 10 (6-14) Blood Urea Nitrogen 26 mg/dL (8-26) Creatinine 1.4 mg/dL (0.7-1.3) Estimated GFR (Cockcroft-Gault) 49.8 Glucose Level 94 mg/dL (70-99) Calcium Level 8.2 mg/dL (8.5-10.1) Phosphorus Level 3.7 mg/dL (2.6-4.7) Magnesium Level 2.1 mg/dL (1.8-2.4) Test 03/18/19 05:35 03/18/19 06:40 03/18/19 07:43 Glucose (Fingerstick) 137 mg/dL (70-99) 156 mg/dL (70-99) 152 mg/dL (70-99) Assessment/Plan Assessment/Plan RIH, fat containing will discuss with Dr Bright, no bowel involvement hyperglycemia on admission, A1c 9.4--dm management possible repair as outpt once improved THEO BRIGHT MD 03/19/19 0722: CONSULT Assessment/Plan Assessment/Plan LATE ENTRY FROM 03/18/19 pt seen, interviewed and examined has a reducible,non tender right inguinal hernia will offer outpatient repair after his diabetes is better controlled will sign off for now please call if needed Thanks for consult JUAN J ECHAVARRIA APRN Mar 18, 2019 08:54 THEO BRIGHT MD Mar 19, 2019 07:22
[2019-03-18] MEDS ORDERED: HEPARIN for SUB-Q USE 5,000 UNIT/ML VIAL. SQ SCH (09:00)
[2019-03-18] MEDS ORDERED: LOSARTAN POTASSIUM 50 MG TABLET. PO SCH (09:00)
[2019-03-18] MEDS ORDERED: CITALOPRAM 20 MG TABLET. PO SCH (09:00)
[2019-03-18] MEDS ORDERED: GABAPENTIN 300 MG CAPSULE. PO SCH (09:00)
[2019-03-18] MEDS ORDERED: hydroCHLOROthiazide 25 MG TABLET PO SCH (09:00)
[2019-03-18] MEDS ORDERED: OMEGA-3 FATTY ACIDS/FISH OIL 1,000 MG CAPSULE. PO SCH (09:00)
[2019-03-18] MEDS ORDERED: DIGOXIN 125 MCG TABLET. PO SCH (09:00)
[2019-03-18] MEDS ORDERED: NON FORMULARY ITEM (Omeprazole 1 CAP) PO SCH (09:00)
[2019-03-18] MEDS ORDERED: SOTALOL 80 MG TABLET. PO SCH (09:00)
--- NOTE | 2019-03-18 09:02 | NUR ---
Wound Care Wound care consult for R 2nd toe DFU. Cleansed wound, applied Xeroform and bandaid secured with hypafix tape. No other wounds noted on fulls kin inspection. Pt has appt in [facility] on Monday for follow up. WC will continue to follow for possible changes.
--- NOTE | 2019-03-18 09:26 | PDOC1 ---
History and Physical Date of Admission Date of Admission DATE: 03/18/19 TIME: 09:25 History of Present Illness History of Present Illness Patient is a 73 year old male with history of diabetes type 2, hypertension, high cholesterol, who presents to the ED today complaining of right groin mass for 1 month. Patient denies any known injury. Denies any urgency, frequency, dysuria. Denies any abdominal pain. He states he had abdominal hernia which was fixed a couple years ago. Patient is [place]ish-speaking and interpretation is provided by family Past Medical History Cardiovascular: AFIB, HTN, Hyperlipidemia Heme/Onc: Cancer Musculoskeletal: low back pain Endocrine: Diabetes Past Surgical History Past Surgical History: Colon Resection, Other Family History Family History: No Significant, Family History Unknown Social History Smoke: No ALCOHOL: rare Drugs: None Current Problem List Problem List Problems Medical Problems: (1) Right groin mass Status: Acute Current Medications Current Medications Current Medications Sodium Chloride 1,000 ml @ 1,000 mls/hr 1X ONCE IV Last administered on 03/17/19at 22:00; Start 03/17/19 at 22:00; Stop 03/17/19 at 22:59; Status DC Sodium Chloride 1,000 ml @ 1,000 mls/hr 1X ONCE IV Last administered on 03/17/19at 22:01; Start 03/17/19 at 22:00; Stop 03/17/19 at 22:59; Status DC Insulin Human Regular (HumuLIN R VIAL) 10 unit 1X ONCE IV ; Start 03/17/19 at 22:00; Stop 03/17/19 at 22:01; Status DC Sodium Chloride 1,000 ml @ 100 mls/hr Q10H IV ; Start 03/17/19 at 22:00; Stop 03/18/19 at 07:59; Status DC Ondansetron HCl (Zofran) 4 mg PRN Q6HRS PRN IV NAUSEA/VOMITING 1ST CHOICE; Start 03/17/19 at 21:45 Prochlorperazine Edisylate (Compazine) 10 mg PRN Q6HRS PRN IV NAUSEA/VOMITING 2ND CHOICE; Start 03/17/19 at 21:45 Al Hydroxide/Mg Hydroxide (Mylanta Plus Xs) 30 ml PRN Q3HRS PRN PO HEARTBURN / GAS; Start 03/17/19 at 21:45; Status Cancel Oxycodone HCl (Roxicodone) 5 mg PRN Q3HRS PRN PO BREAKTHROUGH PAIN; Start 03/17/19 at 21:45 Morphine Sulfate (Morphine Sulfate) 1 mg PRN Q2HR PRN IV SEVERE PAIN 7-10; Start 03/17/19 at 21:45 Acetaminophen (Tylenol) 650 mg PRN Q6HRS PRN PO Headaches, Temp > 101.5F; Start 03/17/19 at 21:45 Magnesium Hydroxide (Milk Of Magnesia) 2,400 mg PRN Q12HR PRN PO CONSTIPATION; Start 03/17/19 at 21:45; Status UNV Bisacodyl (Dulcolax Supp) 10 mg PRN DAILY PRN SD CONSTIPATION 1ST CHOICE; Start 03/17/19 at 21:45 Heparin Sodium (Porcine) (Heparin Sodium) 5,000 unit Q12HR SQ ; Start 03/18/19 at 09:00 Insulin Human Regular 150 unit/ Sodium Chloride 151.5 ml @ 0 mls/hr CONT PRN IV SEE I/O RECORD Last administered on 03/17/19at 22:26; Start 03/17/19 at 21:45 Dextrose (Dextrose 50%-Water Syringe) 12.5 gm PRN Q15MIN PRN IV LOW BLOOD SUGAR; Start 03/17/19 at 21:45 Pantoprazole Sodium (Protonix) 40 mg DAILYAC PO ; Start 03/18/19 at 07:30 Digoxin (Lanoxin) 125 mcg DAILY PO ; Start 03/18/19 at 09:00 Gabapentin (Neurontin) 300 mg BID PO ; Start 03/18/19 at 09:00 Glimepiride (Amaryl) 2 mg BIDWMEALS PO ; Start 03/18/19 at 08:00 Acetaminophen/ Hydrocodone Bitart (Lortab 5/325) 1 tab PRN Q6HRS PRN PO MODERATE PAIN 4-6; Start 03/17/19 at 21:45 Insulin Glargine (Lantus) 45 units QHS SQ ; Start 03/17/19 at 22:00 Montelukast Sodium (Singulair) 10 mg QHS PO ; Start 03/17/19 at 22:00 Diltiazem HCl (Cardizem 24hr Cd) 240 mg DAILY PO ; Start 03/18/19 at 09:00 Citalopram Hydrobromide (CeleXA) 20 mg DAILY PO ; Start 03/18/19 at 09:00 Latanoprost (Xalatan) 1 drop QHS OU ; Start 03/17/19 at 22:00 Losartan Potassium (Cozaar) 100 mg DAILY PO ; Start 03/18/19 at 09:00 Fish Oil (Fish Oil) 1,000 mg BID PO ; Start 03/18/19 at 09:00 Non-Formulary Medication (Omeprazole ) 1 cap DAILY PO ; Start 03/18/19 at 09:00; Status UNV Sotalol HCl (Betapace) 120 mg DAILY PO ; Start 03/18/19 at 09:00 Warfarin Sodium (Coumadin Per Pharmacy) 1 each PRN DAILY PRN MC SEE COMMENTS Last administered on 03/18/19at 01:48; Start 03/17/19 at 21:45 Albuterol Sulfate (Ventolin Neb Soln) 2.5 mg PRN Q4HRS PRN NEB SHORTNESS OF BREATH; Start 03/17/19 at 21:45 Guaifenesin (Robitussin Dm) 10 ml PRN Q6HRS PRN PO COUGHN 1ST CHOICE; Start 03/17/19 at 21:45 Ondansetron HCl (Zofran) 4 mg PRN Q8HRS PRN IV NAUSEA/VOMITING; Start 03/17/19 at 21:45; Stop 03/18/19 at 21:44; Status UNV Insulin Human Lispro (HumaLOG) 0-7 UNITS TIDWMEALS SQ ; Start 03/18/19 at 08:00; Status UNV Dextrose (Dextrose 50%-Water Syringe) 12.5 gm PRN Q15MIN PRN IV SEE COMMENTS; Start 03/17/19 at 21:45; Status UNV Sodium Chloride 1,000 ml @ 125 mls/hr 1X ONCE IV Last administered on 03/18/19at 00:21; Start 03/17/19 at 22:00; Stop 03/18/19 at 05:59; Status DC Hydrochlorothiazide (Hydrodiuril) 25 mg DAILY PO ; Start 03/18/19 at 09:00 Pharmacy Consult (C.diff Med Screen By Rx) 1 each 1X ONCE MC ; Start 03/18/19 at 00:00; Stop 03/18/19 at 00:01; Status DC Active Scripts Active Cephalexin 500 Mg Capsule 1 Cap PO TID Cardizem Cd (Diltiazem Hcl) 240 Mg Cap.er.24h 1 Cap PO DAILY Reported Hyzaar 100-25 Tablet (Losartan/Hydrochlorothiazide) 1 Each Tablet 1 Tab PO DAILY Latanoprost 2.5 Ml Drops 1 Drop OP HS Digoxin 125 Mcg Tablet 125 Mcg PO DAILY Lexapro (Escitalopram Oxalate) 10 Mg Tablet 10 Mg PO DAILY Fish Oil ([place]-3 Fatty Acids) 300 Mg Capsule 300 Mg PO BID Lortab 5-325 mg Tablet (Hydrocodone/Acetaminophen) 1 Each Tablet 1 Tab PO PRN Q6HRS PRN Sotalol (Sotalol Hcl) 80 Mg Tablet 1.5 Tab PO BID Coumadin (Warfarin Sodium) 2.5 Mg Tablet 1 Tab PO DAILY Glimepiride 2 Mg Tablet 1 Tab PO BID Gabapentin (Gabapentin) 300 Mg Capsule 300 Mg PO BID Omeprazole 40 Mg Capsule.dr 1 Cap PO DAILY Montelukast Sodium Tablet (Montelukast Sodium) 10 Mg Tablet 1 Tab PO DAILY Lantus Solostar (Insulin Glargine,Hum.rec.anlog) 100 Unit/1 Ml Insuln.pen 45 Unit SQ QHS Novolin R (Insulin Regular, Human) 100 Unit/1 Ml Vial 100 Unit IJ Allergies Allergies: Coded Allergies: No Known Drug Allergies (Unverified , 02/27/19) ROS General: YES: Fatigue; No: Chills, Night Sweats, Malaise, Appetite, Other PSYCHOLOGICAL ROS: No: Anxiety, Behavioral Disorder, Concentration difficultie, Decreased libido, Depression, Disorientation, Hallucinations, Hostility, Irritablity, Memory difficulties, Mood Swings, Obsessive thoughts, Physical abus e, Sexual abuse, Sleep disturbances, Suicidal ideation, Other Eyes: No Blurry vision, No Decreased vision, No Double vision, No Dry eyes, No Excessive tearing, No Eye Pain, No Itchy Eyes, No Loss of vision, No Photophobia, No Scotomata, No Uses contacts, No Uses glasses, No Other Respiratory: No: Cough, Hemoptysis, Orthopnea, Pleuritic Pain, Shortness of breath, SOB with excertion, Sputum Changes, Stridor, Tachypnea, Wheezing, Other Cardiovascular: No Chest Pain, No Palpitations, No Orthopnea, No Paroxysmal Noc. Dyspnea, No Edema, No Lt Headedness, No Other Gastrointestinal: Yes Nausea; No Vomiting, No Abdominal Pain, No Diarrhea, No Constipation, No Melena, No Hematochezia, No Other Genitourinary: No Dysuria, No Frequency, No Incontinence, No Hematuria, No Retention, No Discharge, No Urgency, No Pain, No Flank Pain, No Other, No , No , No , No , No , No , No Musculoskeletal: Yes Joint Pain, Yes Joint Stiffness; No Gait Disturbance, No Joint Swelling, No Muscle Pain, No Muscular Weakness, No Pain In:, No Swelling In:, No Other Neurological: No Behavorial Changes, No Bowel/Bladder ControlChng, No Confusion, No Dizziness, No Gait Disturbance, No Headaches, No Impaired C oord/balance, No Memory Loss, No Numbness/Tingling, No Seizures, No Speech Problems, No Tremors, No Visual Changes, No Weakness, No Other Skin: Yes Dry Skin Physical Exam General: Alert, Oriented X3, Cooperative, No acute distress HEENT: PERRLA Lungs: Clear to auscultation Heart: S1S2 Rectal Exam: not examined Extremities: No clubbing, Normal pulses Skin: No breakdown, No significant lesion Neuro: Normal speech, Sensation intact, Cranial nerves 3-12 NL Psych/Mental Status: Mental status NL, Mood NL Vitals Vitals Vital Signs Date Time Temp Pulse Resp B/P (MAP) Pulse Ox O2 Delivery O2 Flow Rate FiO2 03/18/19 07:00 98.0 79 18 174/78 (110) 98 Room Air 98.0 Labs Labs Laboratory Tests Test 03/17/19 20:50 03/17/19 22:15 03/17/19 23:28 03/18/19 00:32 White Blood Count 5.1 x10^3/uL (4.0-11.0) Red Blood Count 4.24 x10^6/uL (4.30-5.70) Hemoglobin 12.0 g/dL (13.0-17.5) Hematocrit 36.7 % (39.0-53.0) Mean Corpuscular Volume 86 fL (79-100) Mean Corpuscular Hemoglobin 28 pg (25-35) Mean Corpuscular Hemoglobin Concent 33 g/dL (31-37) Red Cell Distribution Width 15.4 % (11.5-14.5) Platelet Count 237 x10^3/uL (140-400) Neutrophils (%) (Auto) 52 % (31-73) Lymphocytes (%) (Auto) 34 % (24-48) Monocytes (%) (Auto) 11 % (0-9) Eosinophils (%) (Auto) 3 % (0-3) Basophils (%) (Auto) 0 % (0-3) Neutrophils # (Auto) 2.6 x10^3uL (1.8-7.7) Lymphocytes # (Auto) 1.8 x10^3/uL (1.0-4.8) Monocytes # (Auto) 0.6 x10^3/uL (0.0-1.1) Eosinophils # (Auto) 0.1 x10^3/uL (0.0-0.7) Basophils # (Auto) 0.0 x10^3/uL (0.0-0.2) Prothrombin Time 19.6 SEC (11.7-14.0) Prothromb Time International Ratio 1.7 (0.8-1.1) Sodium Level 128 mmol/L (136-145) Potassium Level 5.2 mmol/L (3.5-5.1) Chloride Level 95 mmol/L (98-107) Carbon Dioxide Level 25 mmol/L (21-32) Anion Gap 8 (6-14) Blood Urea Nitrogen 31 mg/dL (8-26) Creatinine 2.2 mg/dL (0.7-1.3) Estimated GFR (Cockcroft-Gault) 29.6 BUN/Creatinine Ratio 14 (6-20) Glucose Level 636 mg/dL (70-99) Calcium Level 8.3 mg/dL (8.5-10.1) Total Bilirubin 0.4 mg/dL (0.2-1.0) Aspartate Amino Transf (AST/SGOT) 35 U/L (15-37) Alanine Aminotransferase (ALT/SGPT) 59 U/L (16-63) Alkaline Phosphatase 108 U/L (46-116) Total Protein 7.5 g/dL (6.4-8.2) Albumin 3.0 g/dL (3.4-5.0) Albumin/Globulin Ratio 0.7 (1.0-1.7) Lipase 67 U/L (73-393) Glucose (Fingerstick) 564 mg/dL (70-99) 378 mg/dL (70-99) 280 mg/dL (70-99) Test 03/18/19 01:54 03/18/19 02:58 03/18/19 03:25 03/18/19 04:23 Glucose (Fingerstick) 144 mg/dL (70-99) 100 mg/dL (70-99) 117 mg/dL (70-99) White Blood Count 5.7 x10^3/uL (4.0-11.0) Red Blood Count 4.30 x10^6/uL (4.30-5.70) Hemoglobin 11.8 g/dL (13.0-17.5) Hematocrit 36.3 % (39.0-53.0) Mean Corpuscular Volume 84 fL (79-100) Mean Corpuscular Hemoglobin 27 pg (25-35) Mean Corpuscular Hemoglobin Concent 32 g/dL (31-37) Red Cell Distribution Width 15.2 % (11.5-14.5) Platelet Count 245 x10^3/uL (140-400) Neutrophils (%) (Auto) 43 % (31-73) Lymphocytes (%) (Auto) 40 % (24-48) Monocytes (%) (Auto) 14 % (0-9) Eosinophils (%) (Auto) 4 % (0-3) Basophils (%) (Auto) 1 % (0-3) Neutrophils # (Auto) 2.4 x10^3uL (1.8-7.7) Lymphocytes # (Auto) 2.2 x10^3/uL (1.0-4.8) Monocytes # (Auto) 0.8 x10^3/uL (0.0-1.1) Eosinophils # (Auto) 0.2 x10^3/uL (0.0-0.7) Basophils # (Auto) 0.0 x10^3/uL (0.0-0.2) Sodium Level 142 mmol/L (136-145) Potassium Level 3.7 mmol/L (3.5-5.1) Chloride Level 106 mmol/L (98-107) Carbon Dioxide Level 26 mmol/L (21-32) Anion Gap 10 (6-14) Blood Urea Nitrogen 26 mg/dL (8-26) Creatinine 1.4 mg/dL (0.7-1.3) Estimated GFR (Cockcroft-Gault) 49.8 Glucose Level 94 mg/dL (70-99) Calcium Level 8.2 mg/dL (8.5-10.1) Phosphorus Level 3.7 mg/dL (2.6-4.7) Magnesium Level 2.1 mg/dL (1.8-2.4) Test 03/18/19 05:35 03/18/19 06:40 03/18/19 07:43 03/18/19 08:43 Glucose (Fingerstick) 137 mg/dL (70-99) 156 mg/dL (70-99) 152 mg/dL (70-99) 205 mg/dL (70-99) Laboratory Tests Test 03/17/19 20:50 03/17/19 22:15 03/17/19 23:28 03/18/19 00:32 White Blood Count 5.1 x10^3/uL (4.0-11.0) Red Blood Count 4.24 x10^6/uL (4.30-5.70) Hemoglobin 12.0 g/dL (13.0-17.5) Hematocrit 36.7 % (39.0-53.0) Mean Corpuscular Volume 86 fL (79-100) Mean Corpuscular Hemoglobin 28 pg (25-35) Mean Corpuscular Hemoglobin Concent 33 g/dL (31-37) Red Cell Distribution Width 15.4 % (11.5-14.5) Platelet Count 237 x10^3/uL (140-400) Neutrophils (%) (Auto) 52 % (31-73) Lymphocytes (%) (Auto) 34 % (24-48) Monocytes (%) (Auto) 11 % (0-9) Eosinophils (%) (Auto) 3 % (0-3) Basophils (%) (Auto) 0 % (0-3) Neutrophils # (Auto) 2.6 x10^3uL (1.8-7.7) Lymphocytes # (Auto) 1.8 x10^3/uL (1.0-4.8) Monocytes # (Auto) 0.6 x10^3/uL (0.0-1.1) Eosinophils # (Auto) 0.1 x10^3/uL (0.0-0.7) Basophils # (Auto) 0.0 x10^3/uL (0.0-0.2) Prothrombin Time 19.6 SEC (11.7-14.0) Prothromb Time International Ratio 1.7 (0.8-1.1) Sodium Level 128 mmol/L (136-145) Potassium Level 5.2 mmol/L (3.5-5.1) Chloride Level 95 mmol/L (98-107) Carbon Dioxide Level 25 mmol/L (21-32) Anion Gap 8 (6-14) Blood Urea Nitrogen 31 mg/dL (8-26) Creatinine 2.2 mg/dL (0.7-1.3) Estimated GFR (Cockcroft-Gault) 29.6 BUN/Creatinine Ratio 14 (6-20) Glucose Level 636 mg/dL (70-99) Calcium Level 8.3 mg/dL (8.5-10.1) Total Bilirubin 0.4 mg/dL (0.2-1.0) Aspartate Amino Transf (AST/SGOT) 35 U/L (15-37) Alanine Aminotransferase (ALT/SGPT) 59 U/L (16-63) Alkaline Phosphatase 108 U/L (46-116) Total Protein 7.5 g/dL (6.4-8.2) Albumin 3.0 g/dL (3.4-5.0) Albumin/Globulin Ratio 0.7 (1.0-1.7) Lipase 67 U/L (73-393) Glucose (Fingerstick) 564 mg/dL (70-99) 378 mg/dL (70-99) 280 mg/dL (70-99) Test 03/18/19 01:54 03/18/19 02:58 03/18/19 03:25 03/18/19 04:23 Glucose (Fingerstick) 144 mg/dL (70-99) 100 mg/dL (70-99) 117 mg/dL (70-99) White Blood Count 5.7 x10^3/uL (4.0-11.0) Red Blood Count 4.30 x10^6/uL (4.30-5.70) Hemoglobin 11.8 g/dL (13.0-17.5) Hematocrit 36.3 % (39.0-53.0) Mean Corpuscular Volume 84 fL (79-100) Mean Corpuscular Hemoglobin 27 pg (25-35) Mean Corpuscular Hemoglobin Concent 32 g/dL (31-37) Red Cell Distribution Width 15.2 % (11.5-14.5) Platelet Count 245 x10^3/uL (140-400) Neutrophils (%) (Auto) 43 % (31-73) Lymphocytes (%) (Auto) 40 % (24-48) Monocytes (%) (Auto) 14 % (0-9) Eosinophils (%) (Auto) 4 % (0-3) Basophils (%) (Auto) 1 % (0-3) Neutrophils # (Auto) 2.4 x10^3uL (1.8-7.7) Lymphocytes # (Auto) 2.2 x10^3/uL (1.0-4.8) Monocytes # (Auto) 0.8 x10^3/uL (0.0-1.1) Eosinophils # (Auto) 0.2 x10^3/uL (0.0-0.7) Basophils # (Auto) 0.0 x10^3/uL (0.0-0.2) Sodium Level 142 mmol/L (136-145) Potassium Level 3.7 mmol/L (3.5-5.1) Chloride Level 106 mmol/L (98-107) Carbon Dioxide Level 26 mmol/L (21-32) Anion Gap 10 (6-14) Blood Urea Nitrogen 26 mg/dL (8-26) Creatinine 1.4 mg/dL (0.7-1.3) Estimated GFR (Cockcroft-Gault) 49.8 Glucose Level 94 mg/dL (70-99) Calcium Level 8.2 mg/dL (8.5-10.1) Phosphorus Level 3.7 mg/dL (2.6-4.7) Magnesium Level 2.1 mg/dL (1.8-2.4) Test 03/18/19 05:35 03/18/19 06:40 03/18/19 07:43 03/18/19 08:43 Glucose (Fingerstick) 137 mg/dL (70-99) 156 mg/dL (70-99) 152 mg/dL (70-99) 205 mg/dL (70-99) VTE Prophylaxis Ordered VTE Prophylaxis Devices: No VTE Pharmacological Prophylaxi: No Assessment/Plan Assessment/Plan hyperglycemia, HONK poor compliance meds inguinal hernia, surg to follow outpatient he feels well ABDIRASHID BELTRAN MD Mar 18, 2019 09:26
[2019-03-18] MEDS ORDERED: DEXTROSE 50% 25 GM / 50ML DISP.SYRIN. IV PRN (10:15)
[2019-03-18] MEDS ORDERED: INSULIN REGULAR 100 UNIT/ML 3ML VIAL. IV ONE (10:15)
[2019-03-18 10:49] VITALS: BP 110/80
--- NOTE | 2019-03-18 11:09 | EKG ---
[facility] [address] [place] [address] Test Date: 2019-03-18 Test Time: 10:59:32 Pat Name: OSIEL VALLADARES Department: Room: 576 1 Gender: M Primary Substance Abuse Counselor: : 1945 Requested By: ABDIRASHID BELTRAN Order Number: [id number] Reading MD: Measurements Intervals Sikes Rate: 107 P: 0 ND: 198 QRS: 29 QRSD: 86 T: -123 QT: 334 QTc: 451 Interpretive Statements SINUS TACHYCARDIA ATRIAL PREMATURE COMPLEX(ES) LOW LIMB LEAD VOLTAGE T ABNORMALITY IN ANTERIOR LEADS ABNORMAL ECG RI6.01 Unconfirmed report No previous ECG available for comparison
[2019-03-18 12:01] VITALS: BP 110/80
--- NOTE | 2019-03-18 12:02 | NUR ---
SW following pt dc planning. Chart reviewed and discussed with RN. Pt is from home and does not have skilled needs. Wound care following pt. SW will continue to follow pt pending discharge needs.
--- NOTE | 2019-03-18 12:58 | NUR ---
Pharmacy Warfarin Dosing Note S: Pharmacy consulted to assist with anticoagulation therapy started HOTEL CUSTODIAN O: OSIEL AVILES is a 73 year old M with Atrial Fibrillation LABS: Last INR: 1.7 Last HGB: 12 Last HCT: 36.7 Last PLT: 237 Last dose of 2.5mg HOTEL CUSTODIAN at home given on 03/17/19 Ongoing Drug Interactions: CELEXA/LEXAPRO A:INR of 1.7 is below desired range. Target range for this patient is: 2 -3 P: Warfarin dose: 3 mg Today at [address] [facility]: Heparin 5000 units SQ q12h Next INR due 03/18/19 AM Pharmacy anticoagulation service will continue to follow. AUGUSTO RIOJAS [facility], 03/18/19 [id number]
--- NOTE | 2019-03-18 13:20 | NUR ---
Pharmacy Medication Review S: Consulted for medication review re: C.diff Risk Assessment score of 4 O: OSIEL AVILES is a 73 year old with: Previous C.diff infection: No Previous hospitalization: No Recent antibiotics: Within 30 days Use of gastric acid suppressor: Yes Transfer from CT/LTAC: No Current antibiotic regimen: NONE Current acid suppression regimen: PROTONIX/PRILOSEC A: Patient has been identified as having risk factors for C.diff infection as noted above. P: Antibiotic Regimen recommendation made: N/A Probiotic ordered: NOT ON ABX PPI changed to [id number]: PROTONIX DC'd as no documented GERD,etc AUGUSTO RIOJAS [facility], 03/18/19 [id number]
--- NOTE | 2019-03-18 14:02 | PDOC3 ---
Discharge Summary Visit Information Date of Admission: Mar 17, 2019 Date of Discharge: Mar 18, 2019 Final Diagnosis hyperglycemia, HONK poor compliance meds right groin mass inguinal hernia, surg to follow outpatient he feels well Problems Medical Problems: (1) Right groin mass Status: Acute Brief Hospital Course Allergies Allergies Coded Allergies Type Severity Reaction Last Updated Verified No Known Drug Allergies 02/27/19 No Vital Signs Vital Signs Date Time Temp Pulse Resp B/P (MAP) Pulse Ox O2 Delivery O2 Flow Rate FiO2 03/18/19 12:01 83 110/80 03/18/19 10:49 98.0 18 96 Room Air 98.0 Lab Results Laboratory Tests Test 03/17/19 20:50 03/17/19 22:15 03/17/19 23:28 03/18/19 00:32 White Blood Count 5.1 x10^3/uL (4.0-11.0) Red Blood Count 4.24 x10^6/uL (4.30-5.70) Hemoglobin 12.0 g/dL (13.0-17.5) Hematocrit 36.7 % (39.0-53.0) Mean Corpuscular Volume 86 fL (79-100) Mean Corpuscular Hemoglobin 28 pg (25-35) Mean Corpuscular Hemoglobin Concent 33 g/dL (31-37) Red Cell Distribution Width 15.4 % (11.5-14.5) Platelet Count 237 x10^3/uL (140-400) Neutrophils (%) (Auto) 52 % (31-73) Lymphocytes (%) (Auto) 34 % (24-48) Monocytes (%) (Auto) 11 % (0-9) Eosinophils (%) (Auto) 3 % (0-3) Basophils (%) (Auto) 0 % (0-3) Neutrophils # (Auto) 2.6 x10^3uL (1.8-7.7) Lymphocytes # (Auto) 1.8 x10^3/uL (1.0-4.8) Monocytes # (Auto) 0.6 x10^3/uL (0.0-1.1) Eosinophils # (Auto) 0.1 x10^3/uL (0.0-0.7) Basophils # (Auto) 0.0 x10^3/uL (0.0-0.2) Prothrombin Time 19.6 SEC (11.7-14.0) Prothromb Time International Ratio 1.7 (0.8-1.1) Sodium Level 128 mmol/L (136-145) Potassium Level 5.2 mmol/L (3.5-5.1) Chloride Level 95 mmol/L (98-107) Carbon Dioxide Level 25 mmol/L (21-32) Anion Gap 8 (6-14) Blood Urea Nitrogen 31 mg/dL (8-26) Creatinine 2.2 mg/dL (0.7-1.3) Estimated GFR (Cockcroft-Gault) 29.6 BUN/Creatinine Ratio 14 (6-20) Glucose Level 636 mg/dL (70-99) Calcium Level 8.3 mg/dL (8.5-10.1) Total Bilirubin 0.4 mg/dL (0.2-1.0) Aspartate Amino Transf (AST/SGOT) 35 U/L (15-37) Alanine Aminotransferase (ALT/SGPT) 59 U/L (16-63) Alkaline Phosphatase 108 U/L (46-116) Total Protein 7.5 g/dL (6.4-8.2) Albumin 3.0 g/dL (3.4-5.0) Albumin/Globulin Ratio 0.7 (1.0-1.7) Lipase 67 U/L (73-393) Glucose (Fingerstick) 564 mg/dL (70-99) 378 mg/dL (70-99) 280 mg/dL (70-99) Test 03/18/19 01:54 03/18/19 02:58 03/18/19 03:25 03/18/19 04:23 Glucose (Fingerstick) 144 mg/dL (70-99) 100 mg/dL (70-99) 117 mg/dL (70-99) White Blood Count 5.7 x10^3/uL (4.0-11.0) Red Blood Count 4.30 x10^6/uL (4.30-5.70) Hemoglobin 11.8 g/dL (13.0-17.5) Hematocrit 36.3 % (39.0-53.0) Mean Corpuscular Volume 84 fL (79-100) Mean Corpuscular Hemoglobin 27 pg (25-35) Mean Corpuscular Hemoglobin Concent 32 g/dL (31-37) Red Cell Distribution Width 15.2 % (11.5-14.5) Platelet Count 245 x10^3/uL (140-400) Neutrophils (%) (Auto) 43 % (31-73) Lymphocytes (%) (Auto) 40 % (24-48) Monocytes (%) (Auto) 14 % (0-9) Eosinophils (%) (Auto) 4 % (0-3) Basophils (%) (Auto) 1 % (0-3) Neutrophils # (Auto) 2.4 x10^3uL (1.8-7.7) Lymphocytes # (Auto) 2.2 x10^3/uL (1.0-4.8) Monocytes # (Auto) 0.8 x10^3/uL (0.0-1.1) Eosinophils # (Auto) 0.2 x10^3/uL (0.0-0.7) Basophils # (Auto) 0.0 x10^3/uL (0.0-0.2) Sodium Level 142 mmol/L (136-145) Potassium Level 3.7 mmol/L (3.5-5.1) Chloride Level 106 mmol/L (98-107) Carbon Dioxide Level 26 mmol/L (21-32) Anion Gap 10 (6-14) Blood Urea Nitrogen 26 mg/dL (8-26) Creatinine 1.4 mg/dL (0.7-1.3) Estimated GFR (Cockcroft-Gault) 49.8 Glucose Level 94 mg/dL (70-99) Calcium Level 8.2 mg/dL (8.5-10.1) Phosphorus Level 3.7 mg/dL (2.6-4.7) Magnesium Level 2.1 mg/dL (1.8-2.4) Test 03/18/19 05:35 03/18/19 06:40 03/18/19 07:43 03/18/19 08:43 Glucose (Fingerstick) 137 mg/dL (70-99) 156 mg/dL (70-99) 152 mg/dL (70-99) 205 mg/dL (70-99) Test 03/18/19 09:42 03/18/19 10:44 03/18/19 11:21 Glucose (Fingerstick) 241 mg/dL (70-99) 202 mg/dL (70-99) 194 mg/dL (70-99) Laboratory Tests Test 03/17/19 20:50 03/17/19 22:15 03/17/19 23:28 03/18/19 00:32 White Blood Count 5.1 x10^3/uL (4.0-11.0) Red Blood Count 4.24 x10^6/uL (4.30-5.70) Hemoglobin 12.0 g/dL (13.0-17.5) Hematocrit 36.7 % (39.0-53.0) Mean Corpuscular Volume 86 fL (79-100) Mean Corpuscular Hemoglobin 28 pg (25-35) Mean Corpuscular Hemoglobin Concent 33 g/dL (31-37) Red Cell Distribution Width 15.4 % (11.5-14.5) Platelet Count 237 x10^3/uL (140-400) Neutrophils (%) (Auto) 52 % (31-73) Lymphocytes (%) (Auto) 34 % (24-48) Monocytes (%) (Auto) 11 % (0-9) Eosinophils (%) (Auto) 3 % (0-3) Basophils (%) (Auto) 0 % (0-3) Neutrophils # (Auto) 2.6 x10^3uL (1.8-7.7) Lymphocytes # (Auto) 1.8 x10^3/uL (1.0-4.8) Monocytes # (Auto) 0.6 x10^3/uL (0.0-1.1) Eosinophils # (Auto) 0.1 x10^3/uL (0.0-0.7) Basophils # (Auto) 0.0 x10^3/uL (0.0-0.2) Prothrombin Time 19.6 SEC (11.7-14.0) Prothromb Time International Ratio 1.7 (0.8-1.1) Sodium Level 128 mmol/L (136-145) Potassium Level 5.2 mmol/L (3.5-5.1) Chloride Level 95 mmol/L (98-107) Carbon Dioxide Level 25 mmol/L (21-32) Anion Gap 8 (6-14) Blood Urea Nitrogen 31 mg/dL (8-26) Creatinine 2.2 mg/dL (0.7-1.3) Estimated GFR (Cockcroft-Gault) 29.6 BUN/Creatinine Ratio 14 (6-20) Glucose Level 636 mg/dL (70-99) Calcium Level 8.3 mg/dL (8.5-10.1) Total Bilirubin 0.4 mg/dL (0.2-1.0) Aspartate Amino Transf (AST/SGOT) 35 U/L (15-37) Alanine Aminotransferase (ALT/SGPT) 59 U/L (16-63) Alkaline Phosphatase 108 U/L (46-116) Total Protein 7.5 g/dL (6.4-8.2) Albumin 3.0 g/dL (3.4-5.0) Albumin/Globulin Ratio 0.7 (1.0-1.7) Lipase 67 U/L (73-393) Glucose (Fingerstick) 564 mg/dL (70-99) 378 mg/dL (70-99) 280 mg/dL (70-99) Test 03/18/19 01:54 03/18/19 02:58 03/18/19 03:25 03/18/19 04:23 Glucose (Fingerstick) 144 mg/dL (70-99) 100 mg/dL (70-99) 117 mg/dL (70-99) White Blood Count 5.7 x10^3/uL (4.0-11.0) Red Blood Count 4.30 x10^6/uL (4.30-5.70) Hemoglobin 11.8 g/dL (13.0-17.5) Hematocrit 36.3 % (39.0-53.0) Mean Corpuscular Volume 84 fL (79-100) Mean Corpuscular Hemoglobin 27 pg (25-35) Mean Corpuscular Hemoglobin Concent 32 g/dL (31-37) Red Cell Distribution Width 15.2 % (11.5-14.5) Platelet Count 245 x10^3/uL (140-400) Neutrophils (%) (Auto) 43 % (31-73) Lymphocytes (%) (Auto) 40 % (24-48) Monocytes (%) (Auto) 14 % (0-9) Eosinophils (%) (Auto) 4 % (0-3) Basophils (%) (Auto) 1 % (0-3) Neutrophils # (Auto) 2.4 x10^3uL (1.8-7.7) Lymphocytes # (Auto) 2.2 x10^3/uL (1.0-4.8) Monocytes # (Auto) 0.8 x10^3/uL (0.0-1.1) Eosinophils # (Auto) 0.2 x10^3/uL (0.0-0.7) Basophils # (Auto) 0.0 x10^3/uL (0.0-0.2) Sodium Level 142 mmol/L (136-145) Potassium Level 3.7 mmol/L (3.5-5.1) Chloride Level 106 mmol/L (98-107) Carbon Dioxide Level 26 mmol/L (21-32) Anion Gap 10 (6-14) Blood Urea Nitrogen 26 mg/dL (8-26) Creatinine 1.4 mg/dL (0.7-1.3) Estimated GFR (Cockcroft-Gault) 49.8 Glucose Level 94 mg/dL (70-99) Calcium Level 8.2 mg/dL (8.5-10.1) Phosphorus Level 3.7 mg/dL (2.6-4.7) Magnesium Level 2.1 mg/dL (1.8-2.4) Test 03/18/19 05:35 03/18/19 06:40 03/18/19 07:43 03/18/19 08:43 Glucose (Fingerstick) 137 mg/dL (70-99) 156 mg/dL (70-99) 152 mg/dL (70-99) 205 mg/dL (70-99) Test 03/18/19 09:42 03/18/19 10:44 03/18/19 11:21 Glucose (Fingerstick) 241 mg/dL (70-99) 202 mg/dL (70-99) 194 mg/dL (70-99) Brief Hospital Course Mr. Km Pérez is a 73 old male, admit with pseudohyponatremia, marked hyperglycemia to 600, hyperosmolar, not ketotic. admit on insulin gtt, home insulin discussed and restarted, home meds, he felt better surg eval groin, would like to see outpatient, needs better Blood sugar control Discharge Information Condition at Discharge: Improved Follow Up: Weeks Disposition/Orders: D/C to Home Scheduled Diltiazem Hcl (Cardizem Cd) 240 Mg Cap.er.24h, 1 CAP PO DAILY, #30 Ref 5 Prescribed by: HERBERTH LINDQUIST on 09/28/15 0935 Last Action: Converted on 03/17/192138 by HERBERTH LINDQUIST Escitalopram Oxalate (Lexapro) 10 Mg Tablet, 10 MG PO DAILY for ANTI-DEPRESSANT, Ref 0 (Reported) Entered as Reported by: MARK SANTA on 07/22/16 152 Last Action: Converted on 03/17/192138 by HERBERTH LINDQUIST Gabapentin (Gabapentin ) 300 Mg Capsule, 300 MG PO BID, (Reported) Entered as Reported by: CARRIE HAYES on 01/04/16 150 Last Action: Continued on 03/17/192138 by HERBERTH LINDQUIST Glimepiride (Glimepiride) 2 Mg Tablet, 1 TAB PO BID, #30 Ref 5 (Reported) Entered as Reported by: CARRIE HAYES on 01/04/161507 Last Action: Continued on 03/17/192138 by HERBERTH LINDQUIST Insulin Glargine,Hum.rec.anlog (Lantus Solostar) 100 Unit/1 Ml Insuln.pen, 45 UNIT SQ QHS, #15 Ref 3 (Reported) Entered as Reported by: TEZ CARDENAS on 09/26/15 1033 Last Action: Continued on 03/17/192138 by HERBERTH LINDQUIST Latanoprost (Latanoprost) 2.5 Ml Drops, 1 DROP OP HS, (Reported) Entered as Reported by: MARK SANTA on 07/22/16 1525 Last Action: Converted on 03/17/192138 by HERBERTH LINDQUIST Montelukast Sodium (Montelukast Sodium Tablet ) 10 Mg Tablet, 1 TAB PO DAILY, #30 Ref 5 (Reported) Entered as Reported by: TEZ CARDENAS on 09/26/15 1033 Last Action: Continued on 03/17/192138 by HERBERTH LINDQUIST Luning-3 Fatty Acids (Fish Oil) 300 Mg Capsule, 300 MG PO BID, (Reported) Entered as Reported by: MARK SANTA on 07/22/16 1525 Last Action: Converted on 03/17/192138 by HERBERTH LINDQUIST Omeprazole (Omeprazole) 40 Mg Capsule.dr, 1 CAP PO DAILY, #30 Ref 3 (Reported) Entered as Reported by: CARRIE HAYES on 01/04/16 1508 Last Action: Converted on 03/17/192138 by HERBERTH LINDQUIST Warfarin Sodium (Coumadin) 2.5 Mg Tablet, 1 TAB PO DAILY, #30 Ref 3 (Reported) Entered as Reported by: SOPHIA BYRNE on 04/27/161254 Last Action: HELD on 03/17/192138 by HERBERTH LINDQUIST Miscellaneous Medications Insulin Regular, Human (Novolin R) 100 Unit/1 Ml Vial, 100 UNIT IJ, (Reported) Entered as Reported by: CORY MCKENNA on 03/17/14 1042 Last Action: HELD on 03/17/192138 by HERBERTH LINDQUIST Discontinued Medications Cephalexin (Cephalexin) 500 Mg Capsule, 1 CAP PO TID for foot wound, #30 Prescribed by: MELLY MORTON D.O. on 02/27/19 153 Last Action: HELD on 03/17/192138 by HERBERTH LINDQUIST Digoxin (Digoxin) 125 Mcg Tablet, 125 MCG PO DAILY, (Reported) Entered as Reported by: MARK SANTA on 07/22/16 152 Last Action: Continued on 03/17/192138 by HERBERTH LINDQUIST Hydrocodone/Acetaminophen (Lortab 5-325 mg Tablet) 1 Each Tablet, 1 TAB PO PRN Q6HRS PRN for PAIN, Ref 0 (Reported) Entered as Reported by: SOPHIA BYRNE on 04/27/161254 Last Action: Continued on 03/17/192138 by HERBERTH LINDQUIST Losartan/Hydrochlorothiazide (Hyzaar 100-25 Tablet) 1 Each Tablet, 1 TAB PO DAILY, #30 Ref 5 (Reported) Entered as Reported by: MARK SANTA on 07/22/161524 Last Action: Converted on 03/17/192138 by HERBERTH LINDQUIST Sotalol Hcl (Sotalol) 80 Mg Tablet, 1.5 TAB PO BID, #180 Ref 3 (Reported) Entered as Reported by: SOPHIA BYRNE on 04/27/16 125 Last Action: Converted on 03/17/192138 by HERBERTH LINDQUIST Patient Instructions Patient Instructions A/D same ABDIRASHID BELTRAN MD Mar 18, 2019 14:02
--- NOTE | 2019-03-18 14:45 | NUR ---
Discharge Note: [facility] Discharge instructions and discharge home medications reviewed with Patient and a copy given. All questions have been answered and understanding verbalized. The following instructions and handouts were given: patient visit, medication list, education information. Discontinued lines and drains: peripheral IV, tip intact. Patient discharged to home with self care via private vehicle. Patient left unit in stable conidition with all personal belongings.
[2019-03-18] MEDS ORDERED: WARFARIN 3 MG TABLET. PO ONE (16:00)
[2019-03-18] MEDS ORDERED: INSULIN GLARGINE 300 UNITS/3 ML INSULN.PEN. SQ SCH ×2 (21:00)
[2019-03-19 01:11] LABS: HEMOGLOBIN A1C 9.6 % (4.8-5.6)
== END 2019-03-18 15:00 | disposition home or self-care (01) | DRG 393 ==
LOC: ER 20:09 → 5 SOUTH 21:35
PROVIDERS: ADMIT Internal Medicine; ATTEND Internal Medicine
DX: K40.90 Unilateral inguinal hernia, without obstruction or gangrene, not specified as recurrent (principal); E11.00 Type 2 diabetes mellitus with hyperosmolarity without nonketotic hyperglycemic-hyperosmolar coma (NKHHC); E87.1 Hypo-osmolality and hyponatremia; E78.00 Pure hypercholesterolemia, unspecified; E78.5 Hyperlipidemia, unspecified; H40.9 Unspecified glaucoma; I10 Essential (primary) hypertension; I48.91 Unspecified atrial fibrillation; Z90.49 Acquired absence of other specified parts of digestive tract; Z85.038 Personal history of other malignant neoplasm of large intestine; Z79.4 Long term (current) use of insulin
CPT/HCPCS: 36415; 74176; 80048; 80053; 82962; 83036; 83690; 83735; 84100; 85025; 85610; 93005; J1644; J1815; J7030; 97535

== ENCOUNTER 2019-04-15 07:20 | Day surgery (SDC) | payer OTHER ==
[~2019-04-15] VITALS: Ht 172.7 cm; Wt 87.0 kg
[~2019-04-15 07:20] MED LIST changes: +BUPIVAC MPF-EPI 0.5%-1:200000 30 ML VIAL. ONE; +HYDROmorphone 2 MG/ML VIAL IV PRN; +IV RINGERS,LACTATED 1000ML 1,000 ML IV SCH; +LIDOCAINE 1% PF 2 ML VIAL. ID PRN; +MORPHINE SULFATE 2 MG/ML VIAL. IV PRN; +ONDANSETRON PF 4 MG/2 ML VIAL. IV PRN; +PROCHLORPERAZINE 10 MG/2 ML VIAL. IV PRN; +fentaNYL PF VIAL 100 MCG/2 ML VIAL IV PRN
[2019-04-15 08:15] LABS: BASO % 1 % (0-3); EOS # 0.4 x10^3/uL (0.0-0.7); EOS % 6 % (0-3); HEMATOCRIT 42.9 % (39.0-53.0); HEMOGLOBIN 14.4 g/dL (13.0-17.5); LYMPH # 2.3 x10^3/uL (1.0-4.8); LYMPH % 33 % (24-48); MEAN CORPUSCULAR HEMOGLOBIN 28 pg (25-35); MEAN CORPUSCULAR HGB CONC 34 g/dL (31-37); MEAN CORPUSCULAR VOLUME 85 fL (79-100); MONO # 0.6 x10^3/uL (0.0-1.1); MONO % 9 % (0-9); NEUT # 3.5 x10^3/uL (1.8-7.7); NEUT % 51 % (31-73); PLATELET COUNT 302 x10^3/uL (140-400); RED BLOOD COUNT 5.06 x10^6/uL (4.30-5.70); RED CELL DISTRIBUTION WIDTH 14.8 % (11.5-14.5); WHITE BLOOD COUNT 6.9 x10^3/uL (4.0-11.0)
[2019-04-15] MEDS ORDERED: INSULIN LISPRO 100 UNIT/ML 3ML VIAL for OP,RR ONLY. SQ PRN (08:15)
[2019-04-15 08:25] LABS: PROTHROMBIN TIME PATIENT 12.6 SEC (11.7-14.0)
[2019-04-15 08:32] LABS: CALCIUM 8.7 mg/dL (8.5-10.1); CREATININE 1.7 mg/dL (0.7-1.3); GFR 39.8; POTASSIUM 3.6 mmol/L (3.5-5.1)
[2019-04-15] MEDS ORDERED: ceFAZolin 2GM PREMIX 2 GM/50 ML BAG IV ONE (09:00)
[2019-04-15] MEDS ORDERED: BUPIVACAINE-EPI 0.25%-1:200000 MPF 30 ML VIAL. ONE (09:06)
[2019-04-15] MEDS ORDERED: PROPOFOL 20 ML IV ONE (09:25)
[2019-04-15] MEDS ORDERED: DEXAMETHASONE SOD PHOS 4 MG/ML VIAL ONE (09:26)
[2019-04-15] MEDS ORDERED: ONDANSETRON PF 4 MG/2 ML VIAL. ONE (09:26)
[2019-04-15] MEDS ORDERED: fentaNYL PF VIAL 100 MCG/2 ML VIAL ONE (09:26)
--- NOTE | 2019-04-15 11:06 | DISCH ---
DISCHARGE INSTRUCTIONS Condition on Discharge Condition on Discharge: Stable Activity After Discharge Activity Instructions for Disc: Activity as tolerated, Avoid exertion Lifting Instructions after Dis: No heavy lifting Exercise Instruction after Dis: Progress as tolerated Driving Instructions after Dis: Do not drive (3-4 days) Diet after Discharge Diet after Discharge: Cardiac Swallowing Supervision: None needed Wound Incision Care Wound/Incision Care: Ice to area for comfort Other wound/incision instructi: january showmonday Checks after Discharge Checks after discharge: Check blood press - daily Follow-Up Follow up with: Hal next week Treatment/Equipment after DC Adaptive Equipment Issued: None Warfarin Follow-Up Warfarin Follow UP: Resume regular dose starting tomorrow Monday THEO BRIGHT MD Apr 15, 2019 11:06
--- NOTE | 2019-04-15 11:11 | PDOC ---
BRIEF OPERATIVE NOTE Date: Apr 15, 2019 Pre-Op Diagnosis right inguinal hernia Post-Op Diagnosis same, indirect Procedure Performed repair with mesh Surgeon Hal Wrecking Crane Engine Operator Cherie KOTHARI Anesthesia Type: General Blood Loss 5cc IV Fluid 200cc Specimens Obtained none Findings large indirect hernia, adequate floor Complications none Operative Note Wk # [id number] THEO BRIGHT MD Apr 15, 2019 11:11
[2019-04-15] MEDS: fentaNYL PF VIAL 100 MCG/2 ML VIAL IV PRN ×2 (11:16→11:29)
--- NOTE | 2019-04-15 11:23 | OP ---
DATE OF SURGERY: 04/15/2019 PREOPERATIVE DIAGNOSIS: Right inguinal hernia. POSTOPERATIVE DIAGNOSIS: Right inguinal hernia, indirect. PROCEDURE: Repair with mesh. SURGEON: Abdulaziz Bright MD ANESTHESIA: General LMA. MUSIC CATALOGUER: TAYE Jimenez. ESTIMATED BLOOD LOSS: 5 mL. INTRAVENOUS FLUID: 200 mL. DESCRIPTION OF PROCEDURE: The patient brought to the operating suite, given a general LMA and the right groin prepped and draped in usual sterile fashion. A 0.25% Marcaine with epinephrine was infiltrated along the incision line. Incision made and dissection carried down to the external oblique fascia. Bleeders were cauterized or tied as identified. The fascia was opened in direction of its fibers, extended through the external ring. Cord was stripped off the pubis. Mansfield drain placed around it and dissection carried back to the internal ring where a large indirect hernia was identified, skeletonized and reduced. This was held in reduction with an extra-large plug and Phasix mesh tacked with 2-0 PDS, taking care to avoid injury to adjacent vessels. A keyhole patch was fashioned and placed over the floor of the canal. The slit closed with a single 2-0 PDS stitch. Area checked for adequate hemostasis. When present and a correct sponge count had been obtained, the cord was returned to its normal anatomical position. External oblique fascia closed over a running fashion with 3-0 Vicryl. Subcutaneous approximated with 3-0 Vicryl, skin closed with a subcuticular 4-0 Monocryl. Steri-Strips and a sterile dressing applied. The patient awakened from his anesthetic and taken to the recovery room in satisfactory condition. ABDULAZIZ BRIGHT MD DR: MERA/reymundo JOB#: [id number] / [id number]
[2019-04-15] MEDS ORDERED: OXYC1TAB15 PO (11:39)
[2019-04-15] MEDS ORDERED: DOCU-109 PO (11:41)
[2019-04-15] MEDS ORDERED: oxyCODONE/APAP 5/325 1 TAB TABLET PO ONE (12:00)
[2019-04-15] MEDS ORDERED: hydrALAZINE 20 MG/ML VIAL. IVP ONE (12:15)
[2019-04-15] MEDS ORDERED: hydrALAZINE 20 MG/ML VIAL. ONE (12:17)
[2019-04-15] MEDS ORDERED: METOPROLOL TARTRATE 5 MG/5 ML VIAL. IVP ONE (12:45)
[2019-04-15 13:22] VITALS: BP 169/78
[2019-04-16 00:07] LABS: HEMOGLOBIN A1C 9.5 % (4.8-5.6)
== END 2019-04-15 13:30 | disposition home or self-care (01) ==
LOC: SURG 07:20
PROVIDERS: ATTEND Surgery
DX: K40.90 Unilateral inguinal hernia, without obstruction or gangrene, not specified as recurrent (principal); E78.5 Hyperlipidemia, unspecified; I10 Essential (primary) hypertension; Z79.01 Long term (current) use of anticoagulants; Z79.82 Long term (current) use of aspirin; Z85.038 Personal history of other malignant neoplasm of large intestine; Z95.0 Presence of cardiac pacemaker; Z98.890 Other specified postprocedural states; Z87.891 Personal history of nicotine dependence; Z79.899 Other long term (current) drug therapy
CPT/HCPCS: 36415; 49505; 80048; 82040; 82962; 83036; 85025; 85610; 85730; A7015; C1781; J0360; J0696; J1100; J2405; J2704; J3010; J3490

== ENCOUNTER → 2019-07-08 | Outpatient (CLI) | payer OTHER ==
[~2019-07-08] MED LIST changes: -BUPIVAC MPF-EPI 0.5%-1:200000 30 ML VIAL. ONE; +DOCU-109 PO; -GLIM2TAB2 PO; +GLIM2TAB3 PO; -HYDROmorphone 2 MG/ML VIAL IV PRN; -IV RINGERS,LACTATED 1000ML 1,000 ML IV SCH; -LIDOCAINE 1% PF 2 ML VIAL. ID PRN; -MORPHINE SULFATE 2 MG/ML VIAL. IV PRN; +OMEP40CA45 PO; -OMEP40CA5 PO; -ONDANSETRON PF 4 MG/2 ML VIAL. IV PRN; +OXYC1TAB15 PO; -PROCHLORPERAZINE 10 MG/2 ML VIAL. IV PRN; -fentaNYL PF VIAL 100 MCG/2 ML VIAL IV PRN
--- NOTE | 2019-07-08 10:46 | CARD ---
MR#: [id number] Date of Study: 07/08/2019 Ordering Physician: TARSHA MENDOZA, Referring Physician: TARSAH MENDOZA Tech: Bertha Mc RDCS APPROVED REPORT EXAM: Two-dimensional and M-mode echocardiogram with Doppler and color Doppler. Other Information Quality : AverageHR: 90bpm Rhythm : Atrial Fibrillation INDICATION Atrial Fibrillation 2D DIMENSIONS RVDd3.0 (2.9-3.5cm)Left Atrium(2D)4.3 (1.6-4.0cm) IVSd1.2 (0.7-1.1cm)Aortic Root(2D)3.5 (2.0-3.7cm) LVDd4.6 (3.9-5.9cm)LVOT Diameter2.2 (1.8-2.4cm) PWd1.3 (0.7-1.1cm)LVDs3.7 (2.5-4.0cm) FS (%) 20.1 %SV39.6 ml LVEF(%)42.0 (>50%) M-Mode DIMENSIONS Left Atrium(MM)4.17 (2.5-4.0cm)Aortic Root3.75 (2.2-3.7cm) Aortic Valve AoV Peak Tommy.78.6cm/sAoV VTI14.8cm AO Peak GR.2.5mmHgLVOT Peak Tommy.48.8cm/s AO Mean GR.1mmHgAVA (VMAX)2.26cm2 EUGENIO (VTI)2.30cm2 Mitral Valve MV E Wptcgece316.1cm/sMV DECEL [id number] MV A Mvvmixnv59.8cm/sE/A Ratio4.3 Pulmonary Valve PV Peak Rogqbmdo57.3cm/s Tricuspid Valve TR P. Iafsevom662bu/sRAP [id number] TR Peak Gr.23zcJkNJZG83ffHg LEFT VENTRICLE The left ventricle is normal size. There is mild concentric left ventricular hypertrophy. The systoli c function is mildly impaired. The Ejection Fraction is 40-45%. Septal motion suggestive of conductio n defect. Transmitral Doppler flow pattern is abnormal. RIGHT VENTRICLE The right ventricle is normal size. There is normal right ventricular wall thickness. The right ventr icular systolic function is normal. Pacer lead noted in RV/RA. ATRIA The left atrium is mildly dilated. The right atrium size is normal. The interatrial septum is intact with no evidence for an atrial septal defect or patent foramen ovale as noted on 2-D or Doppler imagi ng. AORTIC VALVE The aortic valve is trileaflet. The aortic valve is mildly calcified. Doppler and Color Flow revealed no significant aortic regurgitation. There is no significant aortic valvular stenosis. MITRAL VALVE Mitral annular calcification is mild. There is no evidence of mitral valve prolapse. There is no mitr al valve stenosis. Doppler and Color-flow revealed mild mitral regurgitation. TRICUSPID VALVE The tricuspid valve is normal in structure and function. Doppler and Color Flow revealed mild tricusp id regurgitation. The PA pressure was estimated at 34 mmHg. There is no tricuspid valve prolapse or v egetation. There is no tricuspid valve stenosis. PULMONIC VALVE The pulmonic valve is not well visualized. GREAT VESSELS The aortic root is mildly enlarged. The ascending aorta is normal in size. The IVC is normal in size and collapses >50% with inspiration. PERICARDIAL EFFUSION There is no evidence of significant pericardial effusion. Critical Notification Critical Value: No <Conclusion> The systolic function is mildly impaired. The Ejection Fraction is 40-45%. Septal motion suggestive of conduction defect. Pacer lead noted in RV/RA. Signed by : German Avery, Electronically Approved : 07/08/2019 10:45:41
== END | disposition home or self-care (01) ==
LOC: ECHO 09:58
PROVIDERS: ATTEND Internal Medicine Cardiovascular Disease
DX: I08.3 Combined rheumatic disorders of mitral, aortic and tricuspid valves (principal); I77.89 Other specified disorders of arteries and arterioles; I48.21 Permanent atrial fibrillation
CPT/HCPCS: 93306

== ENCOUNTER → 2019-10-01 | Outpatient (CLI) | payer MEDICARE, OTHER ==
[2019-08-02 15:00] VITALS: BP 160/64
[~2019-10-01] MED LIST changes: +ACET325T9 PO; +AMOX1TAB11 PO; +ATOR40TA59 PO; +CLOP75TA PO; +CONTRAST GIVEN. MC PRN; -DIGO125T PO; +DIGO125T3 PO; +DILT120C99 PO; +DOXY100T PO; -GLIM2TAB3 PO; +GLIM2TAB7 PO; +IOHEXOL 300 MG/ML 100ML VIAL. IV ONE; +LEVO25TA4 PO; +LISI-130 PO; -MECL12.52 PO; +MECL12.573 PO; +METO25TA4 PO; +METO50TA6 PO
--- NOTE | 2019-10-01 16:59 | RAD ---
Examination: CT right foot with IV contrast HISTORY: History of nonhealing foot ulcer COMPARISON: None available TECHNIQUE: Axial CT images of the right foot were performed with IV contrast. Coronal and sagittal reformats are performed. Exposure: One or more of the following individualized dose reduction techniques were utilized for this examination: 1. Automated exposure control 2. Adjustment of the mA and/or kV according to patient size 3. Use of iterative reconstruction technique Findings: The alignment of the tarsal bones, tarsometatarsal joints, tarsal joints, interphalangeal joints grossly appears unremarkable. There is soft tissue ulcer in the dorsal aspect between the first and second toe measuring 1.5 cm in depth. No evidence of cortical disruption identified. Vascular calcifications identified. IMPRESSION: 1. Soft tissue ulcer identified in the dorsal aspect between the first and second toes. No CT evidence of osteomyelitis. If osteomyelitis is a clinical suspicion ,consider MRI. Electronically signed by: Herve Carrillo MD (10/01/2019 4:55 PM) [id number]
== END ==
LOC: CT 11:00
PROVIDERS: ATTEND Emergency Medicine Undersea and Hyperbaric Medicine
DX: E11.621 Type 2 diabetes mellitus with foot ulcer (principal); L97.513 Non-pressure chronic ulcer of other part of right foot with necrosis of muscle; E11.22 Type 2 diabetes mellitus with diabetic chronic kidney disease
CPT/HCPCS: 73701; Q9967

== ENCOUNTER → 2019-11-28 | Outpatient (CLI) | payer MEDICARE ==
[2019-08-02 15:00] VITALS: BP 160/64
[~2019-11-28] MED LIST changes: -CONTRAST GIVEN. MC PRN; -IOHEXOL 300 MG/ML 100ML VIAL. IV ONE
--- NOTE | 2019-11-28 11:50 | RAD ---
Single view of the chest. 11/28/2019 12:00 AM Indication: Persistent cough Comparison: Chest radiograph July 26, 2019. Findings : Mild left basilar opacity is similar, likely atelectasis. No pneumothorax or pleural effusion identified. No new consolidation is seen. A dual-lead pacemaking device from left subclavian approach is stable. Heart size is stable. Bony thorax is grossly stable. IMPRESSION: No evidence of acute cardiopulmonary process or acute change from prior exam Electronically signed by: Jean Trevizo MD (11/28/2019 11:46 AM) [id number]
== END | disposition home or self-care (01) ==
LOC: RAD 11:01
PROVIDERS: ATTEND Family Medicine
DX: R05 Cough (principal); Z95.0 Presence of cardiac pacemaker
CPT/HCPCS: 71046

== ENCOUNTER → 2019-12-24 | Outpatient (CLI) | payer MEDICARE ==
[2019-08-02 15:00] VITALS: BP 160/64
--- NOTE | 2019-12-24 11:15 | RAD ---
IVONE ART STUDY LOWER EXTREM FELIPE History: Leg pain Comparison: None. Findings: Right IVONE was 1.14, left 1.19. Impression: 1. Ankle brachial indices bilaterally are considered within normal limits. Electronically signed by: Jr Hood MD (12/24/2019 11:12 AM) [id number]
== END ==
LOC: US 10:34
PROVIDERS: ATTEND Family Medicine
DX: M79.604 Pain in right leg (principal); M79.605 Pain in left leg
CPT/HCPCS: 93922

== ENCOUNTER 2020-03-18 17:12 | Emergency (ER) | payer MEDICARE ==
[2019-08-02 15:00] VITALS: BP 160/64
[~2020-03-18 17:12] MED LIST changes: -WARF-78 PO; +WARF2.5T2 PO; -WARF2.5T83 PO; +WARF5TAB2 PO
== END 2020-03-18 21:40 | disposition left against medical advice (07) ==
LOC: ER 17:12
DX: R50.9 Fever, unspecified (principal); Z53.21 Procedure and treatment not carried out due to patient leaving prior to being seen by health care provider